=== PATIENT | female | born 1955 | race Caucasian/White ===

== ENCOUNTER → 2022-02-26 15:16 | Outpatient (BNVA) | payer OTHER, SELFPAY | PROVIDERS: PCP Nurse Practitioner Family; Visit Provider Hospitalist | DX: J44.9 Chronic obstructive pulmonary disease, unspecified (principal); J96.10 Chronic respiratory failure, unspecified whether with hypoxia or hypercapnia; F17.210 Nicotine dependence, cigarettes, uncomplicated; Z71.6 Tobacco abuse counseling | CPT/HCPCS: 94618; 99202; 99212 ==

== ENCOUNTER → 2022-03-12 12:45 | Outpatient (BNVA) | payer OTHER, SELFPAY | PROVIDERS: PCP Nurse Practitioner Family; Visit Provider Nurse Practitioner Family | DX: Z01.818 Encounter for other preprocedural examination (principal); K59.00 Constipation, unspecified; F17.210 Nicotine dependence, cigarettes, uncomplicated | CPT/HCPCS: 99202 ==

== ENCOUNTER 2022-04-02 14:49 | Outpatient (REF) | payer OTHER, SELFPAY ==
--- NOTE | 2022-04-02 17:40 | PFT_ITS ---
Forced vital capacity 84%, FEV1 51%, FEV1/FVC ratio is 47, HQF83-70 17%, and MVV 48%. Post bronchodilator therapy there is slight improvement in FVC and VTS15-64. Total lung capacity 104%. Residual volume 117%. Diffusion capacity 30. CONCLUSION: Severe obstructive airway disorder. There is slight improvement after bronchodilator therapy. Clinical correlation recommended. MD ROLAND Deng/MODL / [id number]
== END 2022-04-02 14:50 | disposition home or self-care (01) ==
LOC: HO.RESP 14:49
PROVIDERS: PCP Nurse Practitioner Family; Visit Provider Hospitalist
DX: J44.9 Chronic obstructive pulmonary disease, unspecified (principal); R06.00 Dyspnea, unspecified
CPT/HCPCS: 94060; 94727; 94729

== ENCOUNTER 2022-04-10 14:25 | Outpatient (REF) | payer OTHER, SELFPAY ==
--- NOTE | ~2022-04-10 | CT_ITS ---
EXAMINATION: CT CHEST SCREENING CLINICAL INFORMATION: Nicotine dependence. Current smoker. COMPARISON: None. TECHNIQUE: Multidetector volumetric CT imaging of the chest is performed without contrast using low dose technique. Additional 2D coronal and sagittal reformatted images and axial 3D maximum intensity projection (MIP) images are generated on the CT workstation. This CT examination was performed using dose optimization techniques as appropriate, variously including the following: *Automated exposure control *Adjustment of mA and/or kV according to patient size (this includes techniques or standardized protocols for targeted exams where dose is matched to indication/reason for exam; i.e. extremities or head) *Use of iterative reconstruction technique DLP: 49 mGy-cm FINDINGS: LUNGS: There is centrilobular emphysema most predominant in the upper lobes. There are focal atelectatic changes in the lingula. No acute consolidation seen. There are several pulmonary nodules visualized. A 4 mm nodule left lung apex image 101/6, 3 mL nodule adjacent to it at the same axial level, 3 mm nodule right upper lobe axial image 111/6, 4 mm nodule subpleural based left upper lobe axial image 145/6, 4 mm ground-glass density medially left upper lobe axial image 146/6, 4 mm nodule, 2 mm nodule and peripherally-based 2 mm nodules in right upper lobe axial image 210/6, semisolid 4 mm nodule peripherally-based left upper lobe axial image 218/6, 4 mm nodule right lower lobe superior segment axial image 252/6 and several additional nodules in the right upper lobe measuring 4 mm and 2 mm right upper lobe 275/6, 3 mm nodule right upper lobe adjacent to major fissure axial image 287/6. There are 2 mm nodules adjacent to each other in the right lower lobe axial image 277/6 and 286/6, 3 mm nodule right lower lobe posteriorly image 369/6. MEDIASTINUM: The thyroid lobes are symmetrical and normal. The central trachea and the bronchi are widely patent. Heart size and the great vessels are normal caliber. No abnormal size mediastinal or hilar lymph node seen. There are small shotty lymph nodes in the pretracheal space. There is no pericardial effusion. The heart size is normal. There is a small to moderate-sized hiatal hernia. PLEURA: There is no pleural effusion. There is minimal bilateral apical pleural thickening. No calcified pleural plaque seen. AXILLA: No lymphadenopathy. UPPER ABDOMEN: Visualized liver, spleen, pancreas and bilateral adrenal glands are unremarkable. OSSEOUS STRUCTURES: No lytic or sclerotic process seen. There is mild ventral spondylosis. CT/CT lung screening IMPRESSION: Diffuse centrilobular emphysema without acute process. There is bilateral apical pleural/parenchymal scarring. There are multiple bilateral pulmonary nodules largest nodule average is 4 mm. No abnormal mediastinal or axillary lymphadenopathy seen. ASSESSMENT: Lung-RADS category 2: Benign RECOMMENDATION: Low-dose annual CT chest.
== END 2022-04-10 14:26 | disposition home or self-care (01) ==
LOC: HO.CT 14:25
PROVIDERS: PCP Nurse Practitioner Family; Visit Provider Physician Assistant Medical
DX: Z12.2 Encounter for screening for malignant neoplasm of respiratory organs (principal); Z01.811 Encounter for preprocedural respiratory examination; F17.210 Nicotine dependence, cigarettes, uncomplicated; J44.9 Chronic obstructive pulmonary disease, unspecified; J96.10 Chronic respiratory failure, unspecified whether with hypoxia or hypercapnia
CPT/HCPCS: 71271; 94618; 99212; G0296

== ENCOUNTER 2022-08-27 12:00 | Outpatient (REF) | payer OTHER, SELFPAY ==
[2022-08-27 12:11] LABS: MANUAL DIFF FLAG NO
[2022-08-27 13:31] LABS: Basophils Absolute Auto 0.1 X10*3/uL (0.0-0.2); Basophils Percent Auto 1.5 % (0-2); Eosinophils Absolute Auto 0.4 X10*3/uL (0.0-0.4); Eosinophils Percent Auto 5.9 % (0-4); Hematocrit 45.5 % (37.0-47.0); Hemoglobin 14.8 g/dl (12.0-16.0); Imm Gran Abs Auto 0.03 X10*3/uL (0.00-0.03); Imm Gran Pct Auto 0.4 % (0.0-0.4); Lymphocytes Absolute Auto 2.7 X10*3/uL (1.2-4.9); Lymphocytes Percent Auto 36.1 % (20-40); Mean Corpuscular HGB Conc 32.5 g/dl (31.0-35.0); Mean Corpuscular Hemoglobin 29.7 pg (27.0-33.0); Mean Corpuscular Volume 91.4 fL (80.0-98.0); Mean Platelet Volume 9.1 fL (9.4-12.3); Monocytes Absolute Auto 0.4 X10*3/uL (0.1-1.2); Monocytes Percent Auto 5.8 % (2-11); Neutrophils Absolute Auto 3.7 x10*3/uL (2.0-8.3); Neutrophils Percent Auto 50.3 % (45-73); Platelet Count 351 X10*3/uL (160-400); Red Blood Count 4.98 X10*6/uL (4.20-5.50); Red Cell Distribution Width 14.6 % (11.0-16.0); White Blood Count 7.4 X10*3/uL (4.8-10.8)
[2022-08-27 14:17] LABS: Alanine Aminotransferase 12 U/L (0-31); Albumin Level 4.2 g/dL (3.5-5.0); Alkaline Phosphatase 85 U/L (39-117); Anion Gap 12 (12-20); Aspartate Amino Transferase 13 U/L (5-31); Bilirubin Total 0.6 mg/dL (0.0-1.0); Blood Urea Nitrogen 10 mg/dL (9-16); Calcium 9.2 mg/dL (8.4-10.2); Carbon Dioxide 28 mmol/L (22-29); Chloride 106 mmol/L (96-108); Cholesterol 248 mg/dL; Estimated Glomerular Filt Rate > 60; Glucose Fasting 81 mg/dL (60-99); HDL Cholesterol 39 mg/dL; LDL Cholesterol Calculated 163 mg/dl; Potassium 4.2 mmol/L (3.3-5.1); Sodium 142 mmol/L (135-145); TSH reflex Free T4 0.96 uIU/mL (0.32-4.0); Total Protein 7.2 g/dL (6.5-8.0); Triglycerides 232 mg/dL; Vitamin D 25-OH Total 16.1 ng/mL (>30)
[2022-08-27 14:33] LABS: Folate 6.7 ng/mL (> or = 4.0); Vitamin B12 629 pg/mL (200-900)
== END 2022-08-27 12:01 | disposition home or self-care (01) ==
LOC: HO.LAB 12:00
PROVIDERS: PCP Nurse Practitioner Family; Visit Provider Nurse Practitioner Family
DX: Z13.29 Encounter for screening for other suspected endocrine disorder (principal); Z13.220 Encounter for screening for lipoid disorders; J44.9 Chronic obstructive pulmonary disease, unspecified; F32.A Depression, unspecified
CPT/HCPCS: 36415; 80053; 80061; 82306; 82607; 82746; 84443; 85025

== ENCOUNTER → 2022-09-10 09:34 | Outpatient (BNVA) | payer OTHER, SELFPAY | PROVIDERS: PCP Nurse Practitioner Family; Visit Provider Hospitalist | DX: Z01.811 Encounter for preprocedural respiratory examination (principal); J44.9 Chronic obstructive pulmonary disease, unspecified; J96.10 Chronic respiratory failure, unspecified whether with hypoxia or hypercapnia; F17.210 Nicotine dependence, cigarettes, uncomplicated; Z86.16 Personal history of COVID-19; Z99.81 Dependence on supplemental oxygen | CPT/HCPCS: 99212 ==

== ENCOUNTER 2023-02-23 12:17 | Outpatient (REF) | payer OTHER, SELFPAY ==
[2023-02-23 13:27] LABS: Appearance Urine Cloudy; Color Urine Dark Yellow; Glucose Urine UA Negative (Negative); Leukocyte Esterase Urine Moderate (2+) (Negative); Nitrite Urine Positive (Negative); PH 7.5 (5.0-9.0); UMIC TRIGGER UACC YES; Urine Blood Trace (Negative); Urine Ketones Trace mg/dL (Negative); Urine Protein Negative (Neg-Trace)
[2023-02-23 13:33] LABS: Bacteria Urine 4+ (None Seen); Hyaline Casts Urine 0-2 /LPF (0-2); Squamous Epithelial Cell Urine 0-2 /HPF (0-2); UACC Culture Trigger YES
== END 2023-02-23 12:18 | disposition home or self-care (01) ==
LOC: HO.LAB 12:17
PROVIDERS: PCP Nurse Practitioner Family; Visit Provider Nurse Practitioner Family
DX: R39.9 Unspecified symptoms and signs involving the genitourinary system (principal)
CPT/HCPCS: 81001; 87086; 87088; 87186

== ENCOUNTER 2023-03-05 12:03 | Outpatient (REF) | payer OTHER, SELFPAY | END 2023-03-05 12:04 | disposition home or self-care (01) | LOC: HO.LAB 12:03 | PROVIDERS: Visit Provider Nurse Practitioner Family | DX: N39.0 Urinary tract infection, site not specified (principal) | CPT/HCPCS: 87086 ==

== ENCOUNTER 2023-08-24 13:16 | Outpatient (REF) | payer OTHER, SELFPAY ==
--- NOTE | ~2023-08-24 | CT_ITS ---
EXAMINATION: CT CHEST SCREENING CLINICAL INFORMATION: Lung cancer screening; current smoker with 50 pack-year smoking history. COMPARISON: CT lung screening dated 04/10/2020 TECHNIQUE: Multidetector volumetric CT imaging of the chest is performed without contrast using low dose technique. Additional 2D coronal and sagittal reformatted images and axial 3D maximum intensity projection (MIP) images are generated on the CT workstation. This CT examination was performed using dose optimization techniques as appropriate, variously including the following: *Automated exposure control *Adjustment of mA and/or kV according to patient size (this includes techniques or standardized protocols for targeted exams where dose is matched to indication/reason for exam; i.e. extremities or head) *Use of iterative reconstruction technique DLP: 51 mGy-cm FINDINGS: LUNGS: There are diffuse centrilobular predominant emphysematous changes. There is biapical pleural and parenchymal scarring. At the posterior right apex (5:86), a 5 mm noncalcified nodule is seen. There are a few further bilateral 1-2 mm noncalcified and calcified lung nodules. Overall, these nodules appear stable from 04/10/2020. No mass, infiltrate or groundglass opacity is seen. There is mild small airway thickening. The central airways appear patent. MEDIASTINUM: The thyroid is unremarkable. There is no thoracic aortic aneurysm. There are mild atherosclerotic calcifications of the great vessel origins and thoracic aorta. No mediastinal or hilar lymphadenopathy is seen. CORONARY ARTERY CALCIFICATION: None visualized on this study. PLEURA: There is no pleural effusion. No pleural mass or thickening. AXILLA: No lymphadenopathy. UPPER ABDOMEN: There is a moderately large hiatus hernia. The adrenal glands are unremarkable OSSEOUS STRUCTURES: There is multi-level thoracolumbar degenerative disc disease and spondylosis. There is a kyphoscoliosis. No acute or aggressive osseous finding is noted. CT/CT lung screening IMPRESSION: 1. A 5 mm noncalcified right lung nodule is again seen, there are further stable bilateral tiny benign, calcified and noncalcified bilateral lung nodules. 2. There are diffuse centrilobular predominant emphysematous changes. 3. No mass, infiltrate or groundglass opacity is seen. 4. There is no thoracic lymphadenopathy or pleural effusion. 5. No aggressive osseous lesion is seen. There is a kyphoscoliosis. 6. There is a moderately large hiatus hernia.. ASSESSMENT: Lung-RADS category 2: Benign RECOMMENDATION: Routine annual low-dose CT screening in 12 months.
== END 2023-08-24 13:17 | disposition home or self-care (01) ==
LOC: HO.CT 13:16
PROVIDERS: PCP Nurse Practitioner Family; Visit Provider Physician Assistant Medical
DX: Z12.2 Encounter for screening for malignant neoplasm of respiratory organs (principal); F17.210 Nicotine dependence, cigarettes, uncomplicated
CPT/HCPCS: 71271

== ENCOUNTER 2024-01-18 09:16 | Outpatient (AMB) | payer OTHER, SELFPAY ==
--- NOTE | 2024-01-18 09:27 | A.OFFPC_ITS ---
Vital Signs 01/18/24 09:30 Height 5 ft 3 in Weight 156 lb 4 oz BMI 27.7 BP 110/70 Blood Pressure Location Rt brachial Position Sitting Pulse 78 Pulse Source Pulse Oximeter Pulse Oximetry (%) 93 Oxygen Delivery Method Room Air Intake Visit Reasons: HLD Intake Note: Patient is here to follow up on HLD. Complaint of bilateral feet pain with numbness Planning Consultant Required: No Paint Spray Inspector: Not Required per policy Accompanied by: Self / Same As Patient Allergies duloxetine Allergy (Intermediate, Uncoded 01/18/24 10:43) mood swings fenofibrate Allergy (Intermediate, Uncoded 01/18/24 10:43) leg pain tizanidine Allergy (Intermediate, Uncoded 01/18/24 10:43) ineffective topiramate Allergy (Unknown, Uncoded 01/18/24 10:43) sob Medication List - Last Reconciled 01/18/24 by Jerome Busby MD bisacodyl (Dulcolax (bisacodyl)) 10 mg (2 x 5 mg) PO ONCE 1 day cholecalciferol (vitamin D3) 50 mcg PO DAILY citalopram 40 mg PO DAILY docusate sodium 100 mg PO BEDTIME umbpxfjhtmc-apkedwceq-psnbnhps 200-62.5-25 mcg (Trelegy Ellipta) 1 inh inhalation DAILY hydrocortisone 2.5% topical ipratropium-albuterol 0.5 mg-3 mg(2.5 mg base)/3 mL 3 mL inhalation BID 30 days nystatin 1 appl topical DAILY 2 weeks omeprazole 20 mg PO DAILY polyethylene glycol 3350 (Miralax) 238 grams PO ONCE pravastatin 10 mg PO BEDTIME Tobacco use date assessed: 01/18/24 Fall risk assessment: No Falls in past year Last assessed Fall Risk: 01/18/24 Dental Screening Dental Screen Date: 01/18/24 Did you have a dental visit in the last 12 months?: No Did you have a dental problem in the last 6 months where you did not have access to dental care?: No Was dental information given to patient?: No HPI HLD HPI Details 68-year-old female presents to the offic e to discuss her medical condition. I am assuming her care as her provider has left the practice. Patient smokes 1 pack a day. She has history of emphysema and is on oxygen replacement at night. Patient is reporting of burning sensation in her feet bilaterally. She is reporting discomfort in the hips and knees. She lives alone and drives occasionally. Does not cook. Able to function and do activities of daily living. [facility] Medical History Personal history of nicotine dependence Insomnia Chronic respiratory failure History of abnormal cervical Pap smear History of COVID-19 (~09/2021) Surgical History History of D&C History of bladder surgery History of hysterectomy History of cholecystectomy History of appendectomy Family History Sister Lung cancer Mother DM2 (diabetes mellitus, type 2) Father Alzheimer disease Other Mental health disorder Social History (Updated 01/18/24 @ 09:43 by Vivian Scherer Taran) Housing: Other (mobile home) Alcohol intake: never Patient Tobacco Use Status: Current everyday Tobacco user Tobacco use type: Cigarette Cigarette Packs Per Day: 1 Cigarettes Per Day: 15 Years Smoked: (onset 13yo, 1-2ppd x 53yrs, 60+PYH) e-Cigarette/Vaping Use: Never Used Second Hand Smoke Exposure: Yes service: No Current occupational status: retired Cognitive needs: No Hearing needs: No Vision needs: Yes (glasses) Questionnaire PHQ-9 Over the last 2 weeks, how often have you been bothered by any of the following problems? 1. Little interest or pleasure in doing things: not at all 2. Feeling down, depressed, or hopeless: not at all 3. Trouble falling or staying asleep, or sleeping too much: not at all 4. Feeling tired or having little energy: not at all 5. Poor appetite or overeating: not at all 6. Feeling bad about yourself - or that you are a failure or have let yourself or your family down: not at all 7. Trouble concentrating on things, such as reading the newspaper or watching television: not at all 8. Moving or speaking so slowly that other people could have noticed. Or the opposite - being so fidgety or restless that you have been moving around a lot more than usual: not at all 9. Thoughts that you would be better off or of hurting yourself in some way: not at all Total score: 0 Depression Screening Interpretation: Negative Depression Screening Done: Yes Source: Developed by Nae Esposito Kurt Kroenke and colleagues, with an educational bronwyn from [employer]. Thrive Questionnaire Date Thrive assessed: 01/18/24 I am a: Patient What is your living situation today?: I have a steady place to live Within the past 12 months, did the food you bought not last and you didn't have the money to get more?: Never true Within the past 12 months, did you worry whether your food would run out before you got money to buy more?: Never true Do you have trouble paying for medicines?: No Do you have trouble getting transportation to medical appointments?: No Do you have trouble paying your heating and electricity bill?: No Do you have trouble taking care of your child, family member or friend?: No Do you have trouble with day-to-day activities such as bathing, preparing meals, shopping, managing finances, etc.?: No Are you currently unemployed and looking for a job?: No Are you interested in more education?: No Currently or been in a relationship where the following occur: no concerns reported THRIVE Score: 0 AUDIT C Alcohol Use Questionnaire (AUDIT-C) 1. How often do you have a drink containing alcohol?: Never Total Score: 0 FROYLAN-7 AMB Questionnaire FROYLAN-7 Date FROYLAN - 7 assessed: 01/18/24 Feeling nervous, anxious, or on edge: 0 = Not at all Not being able to stop or control worryin = Not at all Worrying too much about different things: 0 = Not at all Trouble relaxin = Not at all Being so restless that it is hard to sit still: 0 = Not at all Becoming easily annoyed or irritable: 0 = Not at all Feeling afraid as if something awful might happen: 0 = Not at all Total FROYLAN-7 score (0-4 normal; 5-9 mild; 10-14 moderate; 15-21 severe): 0 Source: Developed by Nae Esposito Kurt Kroenke and colleagues, with an educational bronwyn from [employer]. Physical exam (Primary Care) Vital Signs: Last Vital Signs Pulse 78 01/18/24 09:30 BP 110/70 01/18/24 09:30 Pulse Ox 93 01/18/24 09:30 Oxygen Delivery Method Room Air 01/18/24 09:30 BMI result Body Mass Index 27.7 Tobacco/Smoking Status: Tobacco use Status Tobacco use date assessed 01/18/24 01/18/24 09:46 Patient Tobacco Use Status Current everyday Tobacco 01/18/24 09:46 Tobacco use type Cigarette 01/18/24 09:46 e-Cigarette/Vaping Use Never Used 01/18/24 09:46 PHQ-9: PHQ-9 Score PHQ-9: Total score 0 01/18/24 10:29 Depression Screening Interpretation: Negative Thrive Assessment: Date of Thrive Assessment Date Thrive assessed 01/18/24 01/18/24 09:46 Currently or been in a relationship where the following occur: no concerns reported Const General: cooperative and healthy appearing Nutritional Appearance: well nourished Orientation/consciousness: patient oriented x3 Limitations: no limitations HENMT Head: Yes normal to inspection Eyes General: appearance normal, both eyes and all related structures Neck Neck: Yes normal visual inspection Chest Chest palpation & inspection: normal palpation of entire chest wall Resp Effort & Inspection: normal respiratory effort Neuro General: patient oriented x3 Assessment and Plan Assessment & Plan (1) Peripheral neuropathy: Code(s): G62.9 - Polyneuropathy, unspecified Plan: Neurontin has been started. Blood work has been ordered. Medications: Refilled nystatin 1 appl topical DAILY 15 grams 0RF 2 weeks Coding Level of Care Code Est Pt Level 3 (98212) Diagnoses Peripheral neuropathy G62.9
[2024-01-18 09:30] VITALS: BP 110/70; PULSE 78; O2SAT 93; BMI 27.7
== END 2024-01-18 10:40 | disposition home or self-care (01) ==
PROVIDERS: PCP Nurse Practitioner Family; Visit Provider Internal Medicine
DX: G62.9 Polyneuropathy, unspecified (principal)
CPT/HCPCS: 99213

== ENCOUNTER → 2024-01-31 16:05 | Outpatient (BNVA) | payer OTHER, SELFPAY | PROVIDERS: PCP Nurse Practitioner Family; Visit Provider Nurse Practitioner Family | DX: Z12.11 Encounter for screening for malignant neoplasm of colon (principal); K21.9 Gastro-esophageal reflux disease without esophagitis; K59.01 Slow transit constipation | CPT/HCPCS: 99212 ==

== ENCOUNTER 2024-02-04 12:08 | Outpatient (REF) | payer OTHER, SELFPAY ==
--- NOTE | ~2024-02-04 | MM_ITS ---
EXAMINATION: MM SCREENING DIGITAL BREAST TOMOSYNTHESIS, BILATERAL CLINICAL INFORMATION: Screening. Asymptomatic. COMPARISON: Mammography: This study is compared with prior exams dating back to 2015. TECHNIQUE: Digital breast tomosynthesis is performed in both the craniocaudal and mediolateral oblique views along with computer-aided detection (CAD). Synthesized 2D images are generated from the tomosynthesis. FINDINGS: There are scattered areas of fibroglandular density (ACR BI-RADS breast composition Category b). There are no significant masses, abnormal calcifications, or other abnormalities. MM/MM tomosynthesis screening BI IMPRESSION: No mammographic evidence of malignancy. ASSESSMENT: BI-RADS BI-RADS 1 - Negative RECOMMENDATION: Routine annual mammography screening. 1 year F/U This examination should not preclude the clinical evaluation of a suspicious palpable abnormality. This patient's information was entered into a reminder system with a target due date for their next mammogram.
[2024-02-04 13:43] LABS: Hematocrit 41.5 % (37.0-47.0); Hemoglobin 14.2 g/dl (12.0-16.0); Mean Corpuscular HGB Conc 34.2 g/dl (31.0-35.0); Mean Corpuscular Hemoglobin 31.6 pg (27.0-33.0); Mean Corpuscular Volume 92.2 fL (80.0-98.0); Mean Platelet Volume 9.1 fL (9.4-12.3); Platelet Count 344 X10*3/uL (160-400); Red Cell Distribution Width 13.9 % (11.0-16.0); White Blood Count 8.6 X10*3/uL (4.8-10.8)
[2024-02-04 14:36] LABS: Alanine Aminotransferase 13 U/L (0-31); Albumin Level 3.9 g/dL (3.5-5.0); Alkaline Phosphatase 77 U/L (39-117); Anion Gap 14 (12-20); Aspartate Amino Transferase 22 U/L (5-31); Bilirubin Direct 0.1 mg/dL (0.0-0.5); Bilirubin Total 0.4 mg/dL (0.0-1.0); Blood Urea Nitrogen 11 mg/dL (9-16); Calcium 9.8 mg/dL (8.4-10.2); Carbon Dioxide 24 mmol/L (22-29); Chloride 103 mmol/L (96-108); Cholesterol 205 mg/dL (<200); Estimated Glomerular Filt Rate > 60; Glucose Random 87 mg/dL (60-115); HDL Cholesterol 43 mg/dL (>40); LDL Cholesterol Calculated 107 mg/dL (<100); Potassium 4.3 mmol/L (3.3-5.1); Sodium 137 mmol/L (135-145); Total Protein 7.6 g/dL (6.5-8.0); Triglycerides 279 mg/dL (<150)
[2024-02-04 14:51] LABS: Thyroid Stimulating Hormone 1.21 uIU/mL (0.32-4.0)
[2024-02-04 15:18] LABS: Appearance Urine Clear; Color Urine Yellow; Glucose Urine UA Negative (Negative); Leukocyte Esterase Urine Negative (Negative); Nitrite Urine Negative (Negative); Specific Gravity - Urine 1.015 (1.005-1.025); Urine Blood Negative (Negative); Urine Ketones Negative (Negative); Urine Protein Negative (Neg-Trace)
== END 2024-02-04 12:09 | disposition home or self-care (01) ==
LOC: HO.MAMMO 12:08
PROVIDERS: PCP Internal Medicine; Visit Provider Internal Medicine
DX: G62.9 Polyneuropathy, unspecified (principal); Z12.31 Encounter for screening mammogram for malignant neoplasm of breast
CPT/HCPCS: 36415; 77063; 77067; 80048; 80061; 80076; 81003; 84443; 85027

== ENCOUNTER → 2024-02-04 12:15 | Outpatient (BNV) | payer OTHER, SELFPAY | PROVIDERS: PCP Internal Medicine; Visit Provider Radiology Diagnostic Radiology | DX: Z12.31 Encounter for screening mammogram for malignant neoplasm of breast (principal) | CPT/HCPCS: 77063; 77067 ==

== ENCOUNTER 2024-02-16 13:42 | Outpatient (AMB) | payer OTHER, SELFPAY ==
--- NOTE | 2024-02-16 13:50 | A.OFFPC_ITS ---
Vital Signs 02/16/24 13:51 Height 5 ft 3 in Weight 157 lb 2 oz BMI 27.8 BP 130/62 Blood Pressure Location Lt brachial Position Sitting Pulse 97 Pulse Source Pulse Oximeter Pulse Oximetry (%) 92 Oxygen Delivery Method Room Air Intake Visit Reasons: 1mof\u Intake Note: Patient is here to follow up on Peripheral Neuropathy. Marketing Intelligence Manager Required: No Therapist Occupational: Not Required per policy Accompanied by: Self / Same As Patient Allergies duloxetine Allergy (Intermediate, Uncoded 02/16/24 15:11) mood swings fenofibrate Allergy (Intermediate, Uncoded 02/16/24 15:11) leg pain tizanidine Allergy (Intermediate, Uncoded 02/16/24 15:11) ineffective topiramate Allergy (Unknown, Uncoded 02/16/24 15:11) sob Medication List - Last Reconciled 02/16/24 by Jerome Busby MD bisacodyl (Dulcolax (bisacodyl)) 20 mg (4 x 5 mg) PO ONCE 1 day cholecalciferol (vitamin D3) 50 mcg PO DAILY citalopram 40 mg PO DAILY docusate sodium 200 mg (2 x 100 mg) PO BEDTIME curhuxsuzuo-stfkrjmio-wrlouvjk 200-62.5-25 mcg (Trelegy Ellipta) 1 inh inhalation DAILY gabapentin (Neurontin) 100 mg PO TID hydrocortisone 2.5% (Proctosol HC) 1 appl [place] BID-QID PRN ipratropium-albuterol 0.5 mg-3 mg(2.5 mg base)/3 mL 3 mL inhalation BID 30 days nystatin 1 appl topical DAILY 2 weeks omeprazole 20 mg PO DAILY Oxygen Home Use As directed polyethylene glycol 3350 (Miralax) 238 grams PO ONCE pravastatin 10 mg PO BEDTIME Tobacco use date assessed: 02/16/24 Fall risk assessment: No Falls in past year Last assessed Fall Risk: 02/16/24 Dental Screening Dental Screen Date: 01/18/24 HPI 1mof\u HPI Details 68-year-old female presents to the [facility] for a follow-up visit. In the last office visit, Neurontin was started at 100 mg thrice daily. Patient reports improvement in her tingling sensation and burning sensation in her feet. She is resting better at night. She reports feeling more energy during the daytime. Compliant with her other medications. [facility] Medical History (Updated 02/16/24 @ 15:14 by Jerome Busby MD) Peripheral neuropathy Personal history of nicotine dependence Insomnia Chronic respiratory failure History of abnormal cervical Pap smear History of COVID-19 (~09/2021) Surgical History History of D&C History of bladder surgery History of hysterectomy History of cholecystectomy History of appendectomy Family History Sister Lung cancer Mother DM2 (diabetes mellitus, type 2) Father Alzheimer disease Other Mental health disorder Social History Housing: Other (mobile home) Alcohol intake: never Patient Tobacco Use Status: Current everyday Tobacco user Tobacco use type: Cigarette Cigarette Packs Per Day: 1 Cigarettes Per Day: 15 Years Smoked: (onset 13yo, 1-2ppd x 53yrs, 60+PYH) e-Cigarette/Vaping Use: Never Used Second Hand Smoke Exposure: Yes service: No Current occupational status: retired Cognitive needs: No Hearing needs: No Vision needs: Yes (glasses) Questionnaire Thrive Questionnaire Date Thrive assessed: 01/18/24 Currently or been in a relationship where the following occur: no concerns reported THRIVE Score: 0 FROYLAN-7 AMB Questionnaire FROYLAN-7 Date FROYLAN - 7 assessed: 01/18/24 Source: Developed by Drs. Igor Fernandez, Nae Galdamez, Cole Eaton and colleagues, with an educational bronwyn from [employer]. Physical exam (Primary Care) Vital Signs: Last Vital Signs Pulse 97 02/16/24 13:51 BP 130/62 02/16/24 13:51 Pulse Ox 92 02/16/24 13:51 Oxygen Delivery Method Room Air 02/16/24 13:51 BMI result Body Mass Index 27.8 Tobacco/Smoking Status: Tobacco use Status Tobacco use date assessed 02/16/24 02/16/24 13:55 Patient Tobacco Use Status Current everyday Tobacco 02/16/24 13:55 Tobacco use type Cigarette 02/16/24 13:55 e-Cigarette/Vaping Use Never Used 02/16/24 13:55 Are you ready to quit: No Thrive Assessment: Date of Thrive Assessment Date Thrive assessed 01/18/24 02/16/24 13:55 Currently or been in a relationship where the following occur: no concerns reported Advance Care Planning discussion: Exists, not on file Date of discussion: 02/16/24 Who was present: Patient Forms completed: Health Care Proxy and MOLST Time spent: 1-15 minutes, not on file Actual minutes spent: 5 Const General: cooperative and healthy appearing Nutritional Appearance: well nourished Orientation/consciousness: patient oriented x3 Limitations: no limitations HENMT Head: Yes normal to inspection Eyes General: appearance normal, both eyes and all related structures Neck Neck: Yes normal visual inspection Chest Chest palpation & inspection: normal palpation of entire chest wall Resp Effort & Inspection: normal respiratory effort Neuro General: patient oriented x3 Assessment and Plan Assessment & Plan (1) Personal history of nicotine dependence: Comment: (current smoker - onset 13yo, 1-2ppd x 53yrs, 60+PYH, +fam hx lung ca) Code(s): Z87.891 - Personal history of nicotine dependence Plan: Counseling to quit smoking done. (2) COPD (chronic obstructive pulmonary disease): Code(s): J44.9 - Chronic obstructive pulmonary disease, unspecified Plan: Condition is stable. (3) Peripheral neuropathy: Code(s): G62.9 - Polyneuropathy, unspecified Plan: Neurontin dosage has been increased to 200 mg 3 times daily. Coding Level of Care Code Est Pt Level 4 (87253) Complex EM visit Add On G2211 Diagnoses Personal history of nicotine dependence Z87.891 COPD (chronic obstructive pulmonary disease) J44.9 Peripheral neuropathy G62.9 Additional Codes Vital Signs *Quality* - Advance Care Planning discussion: Exists, not on file ([id number]) Vital Signs *Quality* - Time spent: 1-15 minutes, not on file ([id number])
[2024-02-16 13:51] VITALS: BP 130/62; PULSE 97; O2SAT 92; BMI 27.8
== END 2024-02-16 14:49 | disposition home or self-care (01) ==
PROVIDERS: PCP Internal Medicine; Visit Provider Internal Medicine
DX: Z87.891 Personal history of nicotine dependence (principal); J44.9 Chronic obstructive pulmonary disease, unspecified; G62.9 Polyneuropathy, unspecified; Z00.00 Encounter for general adult medical examination without abnormal findings
CPT/HCPCS: 1123F; 1124F; 99214; G2211

== ENCOUNTER 2024-08-07 15:09 | Outpatient (AMB) | payer OTHER, MEDICAID, SELFPAY ==
[2024-08-07 15:35] VITALS: BP 122/80; PULSE 89; O2SAT 90; BMI 28.0
--- NOTE | 2024-08-07 15:35 | A.OFFPC_ITS ---
Vital Signs 08/07/24 15:35 Height 5 ft 3 in Weight 158 lb 0.6 oz BMI 28.0 BP 122/80 Blood Pressure Location Lt brachial Position Sitting Pulse 89 Pulse Source Pulse Oximeter Pulse Oximetry (%) 90 L Oxygen Delivery Method Room Air Intake Visit Reasons: 6m f/u-- Rsched from 07/27 Director Of Pulmonary Unit Required: No Allergies duloxetine Allergy (Intermediate, Uncoded 08/07/24 15:35) mood swings fenofibrate Allergy (Intermediate, Uncoded 08/07/24 15:35) leg pain tizanidine Allergy (Intermediate, Uncoded 08/07/24 15:35) ineffective topiramate Allergy (Unknown, Uncoded 08/07/24 15:35) sob Tobacco use date assessed: 02/16/24 Fall risk assessment: No Falls in past year Last assessed Fall Risk: 08/07/24 Dental Screening Dental Screen Date: 01/18/24 HPI 6m f/u-- Rsched from 07/27 HPI Details 68-year-old female [facility]. She reports that she has been very fatigued and short of breath with activities and walking short distances. Therefore since then she has been utilizing a walker. She is currently on gabapentin 200 mg t.i.d. for her neuropathy. She reports mild improvement in her neuropathy although states that she is still having back and foot pain. She reports it is worse at nighttime. In the past she has seen pain management and has had steroid injections to her back and her hips. She is not interested in any type of injections and would rather continue taking the Tylenol and gabapentin. Patient is concerned due to to moles appeared over the past few months to her lower legs. She would like these evaluated. Patient reports chronic incontinence which is unchanged. She reports she wears a brief daily. Patient reports a chronic cough with clear colored sputum this is unchanged. Patient is agreeable to influenza immunization today. Patient had a mammogram on 02/04/2024 which was normal. Patient refusing colonoscopy although agreeable to Cologuard. Patient had a CT lung cancer screening on 08/27/2023 and is aware of lung nodule. Patient reports she still smokes a proximally 30 cigarettes daily. She is interested in quitting smoking cigarettes. Patient denies any chest pain, wheezing, changes in sputum production, orthopnea, lower extremity edema or calf tenderness or any other symptoms complaints or concerns at this time. [facility] Medical History Nicotine dependence, cigarettes, uncomplicated Peripheral neuropathy Insomnia Chronic respiratory failure History of abnormal cervical Pap smear History of COVID-19 (~09/2021) Surgical History History of D&C History of bladder surgery History of hysterectomy History of cholecystectomy History of appendectomy Family History Sister Lung cancer Mother DM2 (diabetes mellitus, type 2) Father Alzheimer disease Other Mental health disorder Social History Housing: Other (mobile home) Alcohol intake: never Patient Tobacco Use Status: Current everyday Tobacco user Tobacco use type: Cigarette Cigarette Packs Per Day: 1 Cigarettes Per Day: 15 Years Smoked: (onset 13yo, 1-2ppd x 53yrs, 60+PYH) e-Cigarette/Vaping Use: Never Used Second Hand Smoke Exposure: Yes service: No Current occupational status: retired Cognitive needs: No Hearing needs: No Vision needs: Yes (glasses) Questionnaire Thrive Questionnaire Date Thrive assessed: 01/18/24 AUDIT C Alcohol Use Questionnaire (AUDIT-C) 1. How often do you have a drink containing alcohol?: Never 3. How often do you have six or more drinks on one occasion?: Never Total Score: 0 FROYLAN-7 AMB Questionnaire FROYLAN-7 Date FROYLAN - 7 assessed: 01/18/24 Source: Developed by Drs. Igor Fernandez, Nae Galdamez, Cole Eaton and colleagues, with an educational bronwyn from [employer]. Review of Systems Const All systems reviewed & are unremarkable except as noted in HPI and below Physical exam (Primary Care) Vital Signs: Last Vital Signs Pulse 89 08/07/24 15:35 BP 122/80 08/07/24 15:35 Pulse Ox 90 L 08/07/24 15:35 Oxygen Delivery Method Room Air 08/07/24 15:35 Appearance: Alert. Oriented X3. No acute distress. ? Head: Normal external exam. Normocephalic. Atraumatic.? Eyes: Conjunctiva and sclera normal. Eyelids normal. ? ENT: Moist mucous membranes. ? No trismus noted.? No drooling noted.? No muffled voice noted. Neck: Normal inspection. Neck supple. FROM. CVS: Normal heart rate and rhythm. Heart sound normal. No murmurs noted. Pulses normal throughout. Respiratory: No respiratory distress. Painless inspiration. Breath sounds normal. No wheezes/rales/rhonchi noted. Chest nontender. ? No accessory muscle usage noted or decreased air movement noted. Back: ?Full range of motion noted. Skin: Skin warm and dry.? Normal skin color.? Normal skin turgor. Patient noted to have a mole to right thigh and left thigh. The moles are not irregular. Moles are brown in color. No additional rashes/lesions/lacerations noted. Extremities: No lower extremity edema or calf tenderness noted. ? Extremities exhibit normal range of motion. Neuro: Oriented X 3.? Normal steady Gait. BMI result Body Mass Index 28.0 Tobacco/Smoking Status: Tobacco use Status Tobacco use date assessed 02/16/24 08/07/24 15:35 Patient Tobacco Use Status Current everyday Tobacco 08/07/24 15:35 Tobacco use type Cigarette 08/07/24 15:35 e-Cigarette/Vaping Use Never Used 08/07/24 15:35 Thrive Assessment: Date of Thrive Assessment Date Thrive assessed 01/18/24 08/07/24 15:35 Office Procedures Flu Questionnaire Does the patient have a severe egg allergy?: No Does the patient have severe life threatening allergies?: No Does the patient have a fever or illness today?: No Has the patient ever had Guillain-Hasty Syndrome?: No Has the patient ever had any past reaction to a flu shot?: No Immunizations Fluarix Triv [id number] (PF) 45 mcg (15 mcg x 3)/0.5 mL IM syringe Performing Provider: Jerome Busby MD [facility] [facility] [place] Administered by: TAYLOR Vences on 08/07/24 16:12 Dose Route Admin Location Dispensed Lot Number Expiration Date [facility] Medical Device Engineer 0.5 mL IM Left Deltoid 0.5 mL [id number] 03/19/25 [id number] [employer] VIS Given Date VIS Provided VIS Publication Date 08/07/24 Single Vaccine 21 Eligibility Eligibility Date Funding Source Not [facility] Eligible 08/07/24 Private Coding Level of Care Code Est Pt Level 4 (62267) Complex EM visit Add On G2211 Diagnoses COPD (chronic obstructive pulmonary disease) J44.9 Nicotine dependence, cigarettes, uncomplicated F17.210 Peripheral neuropathy G62.9 Urinary incontinence R32 Chronic back pain M54.9; G89.29 Benign mole D22.9 Assessment & Plan Assessment & Plan (1) COPD (chronic obstructive pulmonary disease): Code(s): J44.9 - Chronic obstructive pulmonary disease, unspecified Category: Medical Plan: Due to chronic COPD/emphysema patient having fatigue with activities and short walks. CT lung cancer screening perform on 08/27/2023; a stable 5 mm lung nodule noted. Referral to transporter radiology will be placed at this time. (2) Nicotine dependence, cigarettes, uncomplicated: Comment: (current smoker - onset 13yo, 1-2ppd x 55yrs, 60+PYH, +fam hx lung ca) Code(s): F17.210 - Nicotine dependence, cigarettes, uncomplicated Category: Medical Plan: Patient educated on COPD/emphysema and importance of smoking cessation. Patient will be referred to [facility] for smoking cessation. (3) Peripheral neuropathy: Code(s): G62.9 - Polyneuropathy, unspecified Category: Medical Plan: Patient to continue taking gabapentin 200 mg in the morning, 200 mg afternoon and will increased to 400 mg at night. (4) Urinary incontinence: Code(s): R32 - Unspecified urinary incontinence Category: Medical Plan: Patient to continue wearing briefs as needed. Condition is stable. (5) Chronic back pain: Code(s): M54.9 - Dorsalgia, unspecified; G89.29 - Other chronic pain Category: Medical Plan: Patient offered referral to pain management. Patient declined. Patient instructed to take extra-strength Tylenol and her prescribed gabapentin. (6) Benign mole: Code(s): D22.9 - Melanocytic nevi, unspecified Category: Medical Plan: Benign appearing moles. Will continue to monitor. If moles change, grow large or appear irregular patient will be referred at that time. Although no referral indicated at this time for Dermatology. Plan Patient will receive influenza vaccine today. Cologuard referral will be placed. Patient educated on Cologuard test and if positive will need a colonoscopy. Patient understands and is agreeable to this. Patient to return in 3-6 months for follow-up. Orders: Orders Influenza [id number] Immunization 08/07/24 Z23 - Encounter for immunization Referrals Cologuard Test Z12.11 - Encounter for screening for malignant neoplasm of colon
== END 2024-08-07 16:17 | disposition home or self-care (01) ==
PROVIDERS: PCP Internal Medicine; Visit Provider Internal Medicine
DX: J44.9 Chronic obstructive pulmonary disease, unspecified (principal); F17.210 Nicotine dependence, cigarettes, uncomplicated; G62.9 Polyneuropathy, unspecified; R32 Unspecified urinary incontinence; M54.9 Dorsalgia, unspecified; G89.29 Other chronic pain; D22.9 Melanocytic nevi, unspecified

== ENCOUNTER → 2024-08-07 15:09 | Outpatient (BNVA) | payer OTHER, SELFPAY | PROVIDERS: PCP Internal Medicine; Visit Provider Internal Medicine | DX: Z23 Encounter for immunization (principal); J44.9 Chronic obstructive pulmonary disease, unspecified; G62.9 Polyneuropathy, unspecified; R32 Unspecified urinary incontinence; M54.9 Dorsalgia, unspecified; G89.29 Other chronic pain; D22.9 Melanocytic nevi, unspecified; F17.210 Nicotine dependence, cigarettes, uncomplicated; Z71.6 Tobacco abuse counseling | CPT/HCPCS: 90471; 90656; 99212 ==

== ENCOUNTER 2024-09-28 14:23 | Outpatient (AMB) | payer OTHER, MEDICAID, SELFPAY ==
--- NOTE | 2024-09-28 14:39 | A.OFFPC_ITS ---
Vital Signs 09/28/24 14:41 Height 5 ft 3 in Weight 157 lb 6 oz BMI 27.9 BP 110/68 Blood Pressure Location Lt brachial Position Sitting Pulse 83 Pulse Source Pulse Oximeter Temp 97 F Temp Source Temporal Artery Scan Pulse Oximetry (%) 94 Oxygen Delivery Method Room Air Intake Visit Reasons: rt side back pain Intake Note: Patient is here to follow up on right side lower back pain. 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 per policy Accompanied by: Self / Same As Patient Allergies duloxetine Allergy (Intermediate, Uncoded 09/28/24 15:02) mood swings fenofibrate Allergy (Intermediate, Uncoded 09/28/24 15:02) leg pain tizanidine Allergy (Intermediate, Uncoded 09/28/24 15:02) ineffective topiramate Allergy (Unknown, Uncoded 09/28/24 15:02) sob Medication List - Last Reconciled 09/28/24 by Mignon Mittal PA-C acetaminophen ER (Tylenol Arthritis Pain) 1,300 mg (2 x 650 mg) PO Q12H albuterol sulfate 90 mcg/actuation 1 inh inhalation QID PRN bisacodyl (Dulcolax (bisacodyl)) 20 mg (4 x 5 mg) PO ONCE 1 day bisacodyl (Dulcolax (bisacodyl)) 20 mg (4 x 5 mg) PO ONCE 1 day cholecalciferol (vitamin D3) 50 mcg PO DAILY citalopram 40 mg PO DAILY cyclobenzaprine 10 mg PO TID PRN docusate sodium 200 mg (2 x 100 mg) PO BEDTIME fsternkbcbj-tieiojhxe-hmhushba 200-62.5-25 mcg (Trelegy Ellipta) 1 inh inhalation DAILY gabapentin 200 mg (2 x 100 mg) PO BID 90 days gabapentin 400 mg PO BEDTIME 90 days hydrocortisone 2.5% (Proctosol HC) 1 appl ND BID-QID PRN ipratropium-albuterol 0.5 mg-3 mg(2.5 mg base)/3 mL 3 mL inhalation BID 30 days nystatin 1 appl topical DAILY 2 weeks omeprazole 20 mg PO DAILY Oxygen Home Use As directed polyethylene glycol 3350 (Miralax) 238 grams PO ONCE 1 day polyethylene glycol 3350 (Miralax) 238 grams PO ONCE pravastatin 10 mg PO BEDTIME prednisone 40 mg (2 x 20 mg) PO DAILY 5 days Tobacco use date assessed: 09/28/24 Fall risk assessment: No Falls in past year Last assessed Fall Risk: 09/28/24 Dental Screening Dental Screen Date: 09/28/24 Did you have a dental visit in the last 12 months?: No Did you have a dental problem in the last 6 months where you did not have access to dental care?: No Was dental information given to patient?: No PFSH Medical History Nicotine dependence, cigarettes, uncomplicated Peripheral neuropathy Insomnia Chronic respiratory failure History of abnormal cervical Pap smear History of COVID-19 (~09/2021) Surgical History History of D&C History of bladder surgery History of hysterectomy History of cholecystectomy History of appendectomy Family History Sister Lung cancer Mother DM2 (diabetes mellitus, type 2) Father Alzheimer disease Other Mental health disorder Social History Housing: Other (mobile home) Alcohol intake: never Patient Tobacco Use Status: Current everyday Tobacco user Tobacco use type: Cigarette Cigarette Packs Per Day: 1 Cigarettes Per Day: 20 Years Smoked: (onset 13yo, 1-2ppd x 53yrs, 60+PYH) e-Cigarette/Vaping Use: Never Used Second Hand Smoke Exposure: Yes service: No Current occupational status: retired Cognitive needs: No Hearing needs: No Vision needs: Yes (glasses) Questionnaire PHQ-9 Over the last 2 weeks, how often have you been bothered by any of the following problems? 1. Little interest or pleasure in doing things: not at all 2. Feeling down, depressed, or hopeless: not at all 3. Trouble falling or staying asleep, or sleeping too much: not at all 4. Feeling tired or having little energy: not at all 5. Poor appetite or overeating: not at all 6. Feeling bad about yourself - or that you are a failure or have let yourself or your family down: not at all 7. Trouble concentrating on things, such as reading the newspaper or watching television: not at all 8. Moving or speaking so slowly that other people could have noticed. Or the opposite - being so fidgety or restless that you have been moving around a lot more than usual: not at all 9. Thoughts that you would be better off or of hurting yourself in some way: not at all Total score: 0 Depression Screening Interpretation: Negative Depression Screening Done: Yes Source: Developed by Drs. Igor Fernandez, Nae Galdamez, Cole Eaton and colleagues, with an educational bronwyn from [employer]. Thrive Questionnaire Date Thrive assessed: 09/28/24 I am a: Patient What is your living situation today?: I have a steady place to live Within the past 12 months, did the food you bought not last and you didn't have the money to get more?: Never true Within the past 12 months, did you worry whether your food would run out before you got money to buy more?: Never true Do you have trouble paying for medicines?: No Do you have trouble getting transportation to medical appointments?: No Do you have trouble paying your heating and electricity bill?: No Do you have trouble taking care of your child, family member or friend?: No Do you have trouble with day-to-day activities such as bathing, preparing meals, shopping, managing finances, etc.?: No Are you currently unemployed and looking for a job?: No Are you interested in more education?: No Please select the resources that you would like help with: None Currently or been in a relationship where the following occur: No concerns reported THRIVE Score: 0 AUDIT C Alcohol Use Questionnaire (AUDIT-C) 1. How often do you have a drink containing alcohol?: Never 3. How often do you have six or more drinks on one occasion?: Never Total Score: 0 FROYLAN-7 AMB Questionnaire FROYLAN-7 Date FROYLAN - 7 assessed: 09/28/24 Feeling nervous, anxious, or on edge: 0 = Not at all Not being able to stop or control worryin = Not at all Worrying too much about different things: 0 = Not at all Trouble relaxin = Not at all Being so restless that it is hard to sit still: 0 = Not at all Becoming easily annoyed or irritable: 0 = Not at all Feeling afraid as if something awful might happen: 0 = Not at all Total FROYLAN-7 score (0-4 normal; 5-9 mild; 10-14 moderate; 15-21 severe): 0 Source: Developed by Drs. Igor Fernandez, Nae Galdamez, Cole Eaton and colleagues, with an educational bronwyn from [employer]. Physical exam (Primary Care) Vital Signs: Last Vital Signs Temp 97 F 09/28/24 14:41 Pulse 83 09/28/24 14:41 BP 110/68 09/28/24 14:41 Pulse Ox 94 09/28/24 14:41 Oxygen Delivery Method Room Air 09/28/24 14:41 Care Plan Goal for BP management: BP 110/86 AT GOAL/WNL BMI result Body Mass Index 27.9 BMI Assessment/Plan discussion: High BMI High, discussed plan: lifestyle, weight reduction, dietary and physical activity Tobacco/Smoking Status: Tobacco use Status Tobacco use date assessed 09/28/24 09/28/24 14:47 Patient Tobacco Use Status Current everyday Tobacco 09/28/24 14:47 Tobacco use type Cigarette 09/28/24 14:47 e-Cigarette/Vaping Use Never Used 09/28/24 14:47 PHQ-9: PHQ-9 Score PHQ-9: Total score 0 09/28/24 14:47 Depression Screening Interpretation: Negative Thrive Assessment: Date of Thrive Assessment Date Thrive assessed 09/28/24 09/28/24 14:47 Currently or been in a relationship where the following occur: No concerns reported Coding Level of Care Code Est Pt Level 4 (23615) Complex EM visit Add On G2211 Diagnoses Chronic back pain M54.9; G89.29 Benign mole D22.9 Nicotine dependence, cigarettes, uncomplicated F17.210 Peripheral neuropathy G62.9 Low vitamin D level R79.89 Hyperlipidemia E78.5 Gastroesophageal reflux disease, unspecified whether esophagitis present K21.9 Esophagitis presence: esophagitis presence not specified Depression F32.A Insomnia G47.00 Anxiety F41.9 COPD (chronic obstructive pulmonary disease) J44.9 Chronic respiratory failure J96.10 On home O2 Z99.81 Overweight (BMI 25.0-29.9) E66.3 Assessment & Plan Assessment & Plan (1) Chronic back pain: Code(s): M54.9 - Dorsalgia, unspecified; G89.29 - Other chronic pain Category: Medical Plan: Will order x-ray of lumbar spine and x-ray of right hip. Patient will be prescribed extra-strength Tylenol, Flexeril and a course of steroids for 1 week. Gabapentin prescription sent an updated to follow last recommendations. Condition is chronic and stable. Will continue to monitor. (2) Benign mole: Code(s): D22.9 - Melanocytic nevi, unspecified Category: Medical Plan: Condition is chronic and stable will continue to monitor. (3) Nicotine dependence, cigarettes, uncomplicated: Comment: (current smoker - onset 13yo, 1-2ppd x 55yrs, 60+PYH, +fam hx lung ca) Code(s): F17.210 - Nicotine dependence, cigarettes, uncomplicated Category: Medical Plan: Condition is chronic and stable. Will continue to monitor (4) Peripheral neuropathy: Code(s): G62.9 - Polyneuropathy, unspecified Category: Medical Plan: Condition is chronic and stable will continue to monitor. (5) Low vitamin D level: Code(s): R79.89 - Other specified abnormal findings of blood chemistry Category: Medical Plan: Condition is chronic and stable will continue to monitor labs. (6) Hyperlipidemia: Code(s): E78.5 - Hyperlipidemia, unspecified Category: Medical Plan: Patient currently on pravastatin. Taking as prescribed. Condition is chronic and stable. Will continue to monitor. (7) GERD (gastroesophageal reflux disease): Code(s): K21.9 - Gastro-esophageal reflux disease without esophagitis Category: Medical Qualifiers: Esophagitis presence: esophagitis presence not specified Qualified Code(s): K21.9 - Gastro-esophageal reflux disease without esophagitis Plan: Patient currently on omeprazole daily 20 mg taking as prescribed. Condition is chronic and stable. Will continue to monitor. (8) Depression: Code(s): F32.A - Depression, unspecified Category: Medical Plan: Condition is chronic and stable patient is currently on citalopram 40 mg daily taking as prescribed. Will continue to monitor. (9) Insomnia: Code(s): G47.00 - Insomnia, unspecified Category: Medical Plan: Condition is chronic and stable patient is currently on gabapentin taking as prescribed. Will continue to monitor. (10) Anxiety: Code(s): F41.9 - Anxiety disorder, unspecified Category: Medical Plan: Condition is chronic and stable patient is currently on citalopram 40 mg daily taking as prescribed. Will continue to monitor. (11) COPD (chronic obstructive pulmonary disease): Code(s): J44.9 - Chronic obstructive pulmonary disease, unspecified Category: Medical Plan: Condition is chronic and stable patient has home oxygen. Will continue to monitor (12) Chronic respiratory failure: Code(s): J96.10 - Chronic respiratory failure, unspecified whether with hypoxia or hypercapnia Category: Medical Plan: Condition is chronic and stable patient has home oxygen. Will continue to monitor (13) On home O2: Comment: (on O2 from [employer]) Code(s): Z99.81 - Dependence on supplemental oxygen Category: Medical Plan: Condition is chronic and stable patient has home oxygen. Will continue to monitor (14) Overweight (BMI 25.0-29.9): Code(s): E66.3 - Overweight Category: Medical Plan: Condition is chronic and stable. Will continue to monitor. Plan Plan - Order x-ray of lumbar spine and right hip to assess structural causes. - Adjust gabapentin prescription to 200 mg BID and 400 mg nightly for neuropathic pain management. - Recommended use of extra-strength Tylenol. - Discuss alternative management options with orthopedics if necessary. - Consider muscle relaxants with caution regarding driving and alcohol use. Orders: Orders XR hip RT 1V w/wo pel Today G89.29 - Other chronic pain, M54.9 - Dorsalgia, unspecified XR lumbar spine 4V min Today G89.29 - Other chronic pain, M54.9 - Dorsalgia, unspecified Medications: New gabapentin 100 mg PO BID 90 days 180 caps 1RF acetaminophen ER (Tylenol Arthritis Pain) 1,300 mg (2 x 650 mg) PO Q12H 30 tabs 1RF gabapentin 200 mg (2 x 100 mg) PO BID 90 days 360 caps 1RF prednisone 40 mg (2 x 20 mg) PO DAILY 5 days 10 tabs 0RF gabapentin 400 mg PO BEDTIME 90 days 90 caps 1RF cyclobenzaprine 10 mg PO TID PRN 30 tabs 1RF muscle spasm Discontinued gabapentin Discontinued Reason: Duplicate 200 mg (2 x 100 mg) PO TID 180 caps 1RF Patient Instructions: Patient Instructions - Undergo lumbar spine and right hip x-rays as ordered. - Take gabapentin as prescribed: 200 mg twice daily and 400 mg at night. - Use extra-strength Tylenol for pain as directed. - Avoid alcohol and driving when taking muscle relaxants. - Return for follow-up consultation after x-ray results. Scribe Plan - Not visible on output: History of Present Illness The patient is a 68-year-old female presenting with right-sided back pain. She reports that the pain began approximately two weeks ago, specifically on September 11, 2024, when she woke up with it. Initially, the patient visited an urgent care facility following which she was referred to the emergency department. At the ER, she underwent a CT scan which was negative for kidney stones and urinary tract infections, despite having had hematuria in the past. The current back pain is located on the right side and seems to radiate and move in nature. The patient denies any recent trauma, falls, heavy lifting, or invo lvement in a car accident. Classic symptoms associated with urinary tract infections like burning sensation while urinating or hematuria have resolved. Pain does not improve significantly with rest. She recalls a history of back pain due to crushed discs but states this pain is different. Social History - No current employment and not interested in returning to work. 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 - No current alcohol consumption. - Does not drive. - Declined cortisone shots and physical therapy in the past. - No known recreational drug use. Review of Systems - Musculoskeletal: Reports right-sided back pain. - Genitourinary: Denies current dysuria, hematuria, or abdominal pain. - Gastrointestinal: Denies nausea or vomiting. Physical Exam Appearance: Alert. Oriented X3. No acute distress. Head: Normal external exam. Normocephalic. Atraumatic. Eyes: Pupils are equal, round, and reactive to light. Extraocular movements intact. Conjunctiva and sclera normal. Eyelids normal. Ears: External auditory canal normal. Tympanic membranes normal. Throat: Pharynx normal. Uvula midline. Moist mucous membranes. Neck: Normal inspection. Neck supple. Full range of motion. No adenopathy. Thyroid Normal. No meningeal signs. No neck mass noted. Cardiovascular: Normal heart rate and rhythm. Heart sound normal. No murmurs noted. Pulses normal throughout. Respiratory: No respiratory distress. Painless inspiration. Breath sounds normal. No wheezes/rales/rhonchi noted. Chest nontender. No accessory muscle usage noted or decreased air movement noted. Abdomen: Soft and nontender. Bowel sounds normal in all 4 quadrants. No distention noted. No organomegaly noted. No visible injury noted. Back: Right-sided back pain noted. No costovertebral angle tenderness. Full range of motion noted. Skin: Skin warm and dry. Normal skin color. Normal skin turgor. No rashes/lesions/lacerations noted. Extremities: No lower extremity edema. Extremities exhibit normal range of motion. Extremities nontender. Neuro: Oriented X 3. No motor deficit. No sensory deficit. Reflexes normal. Results - Labs: Previous urinalysis noted blood in the urine, no current labs mentioned. - Tests and Diagnostics: CT scan of abdomen negative for kidney stones or UTI. Plan - Order x-ray of lumbar spine and right hip to assess structural causes. - Adjust gabapentin prescription to 200 mg BID and 400 mg nightly for neuropathic pain management. - Recommended use of extra-strength Tylenol. - Discuss alternative management options with orthopedics if necessary. - Consider muscle relaxants with caution regarding driving and alcohol use. Patient was informed and verbally consented to the use of an ambient scribe for clinic note documentation during this visit. Discussion Notes I discussed the likelihood of sciatica as the cause of the patient's right-sided back pain due to her previous history of sciatica and crushed discs. I highlighted the importance of obtaining an x-ray to rule out structural abnormalities. We reviewed pain management strategies, including a potential increase in gabapentin dosage and the introduction of a muscle relaxant, advising against alcohol or operating vehicles due to potential sedative effects. We agreed on avoiding cortisone shots and evaluated the limited efficacy of previous physical therapy sessions. I informed her that follow-up would depend on the results of the x-ray and subsequent symptom progression. Patient Instructions - Undergo lumbar spine and right hip x-rays as ordered. - Take gabapentin as prescribed: 200 mg twice daily and 400 mg at night. - Use extra-strength Tylenol for pain as directed. - Avoid alcohol and driving when taking muscle relaxants. - Return for follow-up consultation after x-ray results.
[2024-09-28 14:41] VITALS: BP 110/68; PULSE 83; TEMP 36.1; O2SAT 94; BMI 27.9
== END 2024-09-28 15:04 | disposition home or self-care (01) ==
PROVIDERS: PCP Internal Medicine; Visit Provider Internal Medicine
DX: M54.9 Dorsalgia, unspecified (principal); G89.29 Other chronic pain; J44.9 Chronic obstructive pulmonary disease, unspecified; J96.10 Chronic respiratory failure, unspecified whether with hypoxia or hypercapnia; D22.9 Melanocytic nevi, unspecified; F17.210 Nicotine dependence, cigarettes, uncomplicated; G62.9 Polyneuropathy, unspecified; R79.89 Other specified abnormal findings of blood chemistry; E78.5 Hyperlipidemia, unspecified; K21.9 Gastro-esophageal reflux disease without esophagitis; F32.A Depression, unspecified; G47.00 Insomnia, unspecified

== ENCOUNTER 2024-09-28 14:23 | Outpatient (REF) | payer OTHER, MEDICAID, SELFPAY ==
--- NOTE | ~2024-09-28 | XR_ITS ---
EXAMINATION: XR HIP, RIGHT CLINICAL INFORMATION: M54.9 - Dorsalgia, unspecified; right-sided hip pain. COMPARISON: None available. TECHNIQUE: AP pelvis, and 2 views of the right hip. FINDINGS: No fracture. Alignment is anatomic. Ilioischial and iliopectineal lines are intact. No suspicious bone lesions. There are mild degenerative changes in both hip joints. Femoral heads are normal in contour. Sacrum and SI joints appear normal. Surgical clip projects over the left sacral wing. No soft tissue abnormalities seen. XR/XR hip RT min 2V w/wo pel IMPRESSION: No acute findings right hip. Mild degenerative arthritis. Electronically signed by: Hamzah Moore MD 09/28/2024 04:13 PM [facility]
--- NOTE | ~2024-09-28 | XR_ITS ---
CLINICAL HISTORY: M54.9 - Dorsalgia, unspecified Radiographs of the lumbar spine, 6 views Comparison: None Findings: There is normal alignment. No fracture. Decreased bone mineralization. The vertebral body heights are preserved. There is mild multilevel intervertebral disc space narrowing with mild endplate osteophytosis. Mild lower lumbar facet hypertrophy. Vascular calcifications. Impression: No acute findings. Mild degenerative change. This document has been electronically signed by: Yuly Steve MD on 09/28/2024 16:42:02
== END 2024-09-28 14:24 | disposition home or self-care (01) ==
LOC: HO.XRAY 14:23
PROVIDERS: PCP Internal Medicine; Visit Provider Internal Medicine
DX: M54.9 Dorsalgia, unspecified (principal); G89.29 Other chronic pain
CPT/HCPCS: 72110; 73502

== ENCOUNTER → 2024-09-28 15:14 | Outpatient (BNV) | payer OTHER, MEDICAID, SELFPAY | PROVIDERS: PCP Internal Medicine; Visit Provider Radiology Diagnostic Radiology | DX: M54.9 Dorsalgia, unspecified (principal); M25.551 Pain in right hip | CPT/HCPCS: 73502 ==

== ENCOUNTER 2024-11-30 13:28 | Outpatient (REF) | payer OTHER, MEDICAID, SELFPAY ==
--- NOTE | ~2024-11-30 | XR_ITS ---
EXAMINATION: XR LUMBAR SPINE 2-3 VIEWS HISTORY: M54.6 - Pain in thoracic spine COMPARISON: Comparison is made with the prior examination dated 09/28/2024. FINDINGS: AP, lateral, and coned down views of the lumbar spine are submitted. Osseous mineralization is normal. Five nonrib-bearing lumbar vertebral bodies are identified, maintaining normal height and alignment without evidence of fracture or spondylolisthesis. There is mild degenerative disc disease with disc space narrowing and osteophyte formation. There is osteoarthritis of the lower lumbar facet joints. There is a 6 mm calcification overlying the right transverse process of L3 which may be related to the urinary system. There is a metallic clip in the pelvis. XR/XR lumbar spine 2-3V IMPRESSION: Degenerative changes of the lumbar spine as described. Electronically signed by: Igor Charles MD 12/01/2024 08:05 AM EDT
[2024-11-30 14:56] LABS: Appearance Urine Clear; Color Urine Yellow; Glucose Urine UA Negative (Negative); Leukocyte Esterase Urine Trace (Negative); Nitrite Urine Positive (Negative); Specific Gravity - Urine 1.015 (1.005-1.025); UMIC TRIGGER UA YES; Urine Blood Trace (Negative); Urine Ketones Negative (Negative); Urine Protein Negative (Neg-Trace)
[2024-11-30 14:59] LABS: Bacteria Urine 1+ (None Seen); Hyaline Casts Urine 0-2 /LPF (0-2); Squamous Epithelial Cell Urine 0-2 /HPF (0-2); WBC Urine 0-5 /HPF (0-5)
[2024-11-30 15:03] LABS: Hematocrit 43.5 % (37.0-47.0); Hemoglobin 14.8 g/dl (12.0-16.0); Mean Corpuscular Hemoglobin 30.3 pg (27.0-33.0); Mean Corpuscular Volume 89.1 fL (80.0-98.0); Mean Platelet Volume 8.7 fL (9.4-12.3); Platelet Count 389 X10*3/uL (160-400); Red Blood Count 4.88 X10*6/uL (4.20-5.50); Red Cell Distribution Width 15.7 % (11.0-16.0); White Blood Count 10.9 X10*3/uL (4.8-10.8)
[2024-11-30 15:46] LABS: Erythrocyte Sedimentation Rate 15 MM/HR (0-20)
[2024-11-30 17:05] LABS: Alanine Aminotransferase 13 U/L (0-31); Albumin Level 4.1 g/dL (3.5-5.0); Alkaline Phosphatase 85 U/L (39-117); Anion Gap 15 (12-20); Aspartate Amino Transferase 21 U/L (5-31); Bilirubin Direct 0.2 mg/dL (0.0-0.5); Bilirubin Total 0.5 mg/dL (0.0-1.0); Blood Urea Nitrogen 9 mg/dL (9-16); Calcium 9.4 mg/dL (8.4-10.2); Carbon Dioxide 23 mmol/L (22-29); Chloride 105 mmol/L (96-108); Cholesterol 176 mg/dL (<200); Estimated Glomerular Filt Rate > 60; Glucose Random 83 mg/dL (60-115); HDL Cholesterol 45 mg/dL (>40); LDL Cholesterol Calculated 78 mg/dL (<100); Potassium 4.3 mmol/L (3.3-5.1); Sodium 139 mmol/L (135-145); Triglycerides 266 mg/dL (<150)
[2024-11-30 17:21] LABS: Thyroid Stimulating Hormone 1.41 uIU/mL (0.32-4.0)
--- OUTSIDE RECORDS SUMMARY | 2024-11-30 17:57 | XMS_ITS | Clinical Summary ---
Author Organization [facility] Address [address] [place] [address] Phone Care Team Providers Care Supervisor Veneer Name Role Phone Unknown, Unknown Primary Care [...] Type Department Care Team Description 11/12/2024 Refill [facility] Internal Medicine [address] [place] [address] Jessica Welsh, TABLE TOP TILE SETTER Medication Refill from Last 3 Months Immunizations [...] (06/26/2021 7:10 AM EDT) Blood Kamryn Davis [facility] LAB BLOOD SENTHIL [facility]KE[facility] EXTERNAL NON-INTERFACED REF LAB * (ABNORMAL) Lipid panel (11/29/2020 8:02 AM EST) HDL 41 mg/dL [facility] Comment: ? Interpretation <40 mg/dL: Low HDL cholesterol (major risk factor for CHD) Greater than or equal to 60 mg/dL: High HDL cholesterol ( negative risk factor for CHD) HDL - cholesterol is affected by a number of factors, e.g. smoking, excerise, hormones, sex and age. CHOLESTEROL 226 0 - 240 mg/dL [facility] TRIGLYCERIDES 247(H) 30 - 160 mg/dL [facility] LDL 136(H) 50 - 129 mg/dL [facility] Comment: LDL levels in terms of risk for coronary heart disease: <100 mg/dL: Optimal 100-129 mg/dL: Near or above optimal 130-159 mg/dL: Borderline high 160-189 mg/dL: High >190 mg/dL: Very High CARDIAC RISK RATIO 5.5(H) 3.3 - 4.4 C [facility] Blood 11/29/2020 8:02 AM EST 11/29/2020 8:07 AM EST Kamryn Davis [facility] BLOOD SENTHIL MCKEON Performing Organization Address City/[facility] Co de Phone Number [address] [address] * Mammogram Outside (No Interpretation) (08/30/2015 12:00 AM EST) Narrative SYSTEMGENERATED, DOCUMENTATION - 12/24/2020 1:20 PM EDT This study is for PACS storage only and not for interpretation. Provider Not In System PhD IMG OUTSIDE I [place] W/OUT INTERPRETATION from Last 3 Months or Most Recently Relevant to Health Maintenance Ulises, Amy Personal/Family Self [address] [place] [address] Ulises, Amy Personal/Family Self [address] [place] [address] [place], Amy Personal/Family Self [address] [place] [address] [place], Amy Personal/Family Self [address] [place] [address] [place], Amy Personal/Family Self [address] [place] [address] [place], Amy Personal/Family Self [address] [place] [address] [place], Amy Personal/Family Self [address] [place] [address] [place], Amy Personal/Family Self [address] [place] [address] Care Teams Supervisor Veneer Relationship Specialty Start Date End Date Unknown, Unknown, PCP - General 11/23/23 Additional Source Comments The information contained in this document represents components of the legal health record. It is not the complete legal health record.[facility]
--- OUTSIDE RECORDS SUMMARY | 2024-11-30 17:57 | XMS_ITS | Encounter Summary ---
Author Organization [facility] Address [address] [facility] [address] [place] [address] Phone Care Team Providers Care Rotary Bar Operator Name Role Phone Unknown, Unknown Primary Care Provider Vashti freeman Reason for Visit * Reason Comments Medication Refill Encounter Details Date Type Department Care Team (Late st Contact Info) Description 11/12/2024 Refill [facility] Medical [facility] Internal Medicine [address] [place] [address] Jessica Welsh, MONOMER PURIFICATION OPERATOR 40 [facility] [place] [place] [address] [email or web address] Medication Refill Social History Tobacco Use Types [...] documented as of this encounter Care Teams Rotary Bar Operator Relationship Specialty Start Date End Date Unknown, Unknown, PCP - General 11/23/23 documented as of this encounter Additional Source Comments The information contained in this document represents components of the legal health record. It is not the complete legal health record.[facility]
--- OUTSIDE RECORDS SUMMARY | 2024-11-30 17:57 | XMS_ITS | Encounter Summary ---
Author Organization [facility] Address [address] [facility] [address] [place] [address] Phone Care Team Providers Care Ssrs Report Developer Name Role Phone Unavailable Primary Care Provider Unavailabl e Encounter Details Date Type Department Care Team (Late st Contact Info) Description 12/25/2010 Hospital Encounter [facility],Outside Imaging [address] [place], [place] [id number] System, Provider Not In, PhD Partners [address] [address] Social History Tobacco Use Types Packs/Day Years [...] PhD IMG OUTSIDE I MAG[place] W/OUT INTERPRETATION documented in this encounter Visit [...] It is not the complete legal health record.[facility]
--- OUTSIDE RECORDS SUMMARY | 2024-11-30 17:57 | XMS_ITS | Encounter Summary ---
Author Organization [facility] Address [address] [place] [address] Phone Care Team Providers Care Black Studies Professor Name Role Phone NandoaleidaKamryn RN BUILDING Primary Care Provider Jessica Welsh PERFECT BIND MACHINE OPERATOR Primary Care Provider [phone] Unknown, Unknown Primary Care Provider Vashti freeman Encounter Details Date Type Department Care Team (Late st Contact Info) Description 12/24/2020 Ancillary Orders [facility],Outside Imaging [address] [place] [address] System, Provider Not In, [place] [address] Social History Tobacco Use Types Packs/Day Years [...] documented as of this encounter Care Teams Black Studies Professor Relationship Specialty Start Date End Date Kamryn Davis CNP [address] [place] [address] PCP - General Internal Medicine 11/21/20 08/01/23 Jessica Welsh NP [address] [place] [address] PCP - General Family Medicine 08/02/23 11/22/23 Unknown, Unknown, PCP - General 11/23/23 documented as of this encounter Additional Source Comments The information contained in this document represents components of the legal health record. It is not the complete legal health record.[facility]
--- OUTSIDE RECORDS SUMMARY | 2024-11-30 17:57 | XMS_ITS | Clinical Summary ---
Author Organization [facility] [employer] Address [address] [place] [address] Care Team Providers Care Oracle Manager Name Role Phone Pcp, No Primary Care Provider [phone] Social History Tobacco Use Types Packs/Day Years [...] Adults 18 yrs or above (or HM Modifier)([facility]) 1974 Hepatitis C Virus Infection in Adolescents and Adults: Screening (or Modifier) ([facility]) 1974 [facility] Screening Reminder: Viri bales for all adults ([facility]) 1974 Tobacco Smoking Cessation: i n Adults excluding Women: Behavioral and Pharmacotherapy Interventions ([facility]) 1974 Colorectal Cancer Screening 45 -75 Yrs (or HM Modifier) 2001 Colorectal Cancer: FLEXIBLE SIGMOIDOSCOPY Screening every 5 yrs 2001 Colorectal Cancer: Fecal Imm unochemical Test (FIT) Annually [facility] 2001 Colorectal Cancer: High-sens itivity gFOBT Screening Annually [facility] 2001 Colorectal Cancer: Stool Col oguard Screening every 3 yrs 2001 Colorectal Cancer:CT Colonog sheba Screening every 5 yrs 2001 Breast Cancer: Screening Viri uallkadie age 50-74 yrs (or HM Modifier)([facility]) 2006 Pneumococcal Vaccination Scr eening: Patients 65+ yrs of age ([facility]) (1 of 1 - PCV) 2006 Zoster/Shingles Vaccine Seri es Screening: Adults aged 18+ yrs (or HM Modifiers)([facility]) (2 of 2) 04/18/2021 02/21/2021 Osteoporosis Screening to Pr event Fractures: Women aged 65 years+ ([facility] ) 2021 DTaP/Tdap/Td Vaccines ([facility]) (2 - Td or Tdap) 03/07/2022 03/07/2012 Flu Vaccination: Ages 65+: Y early High Dose Recommended (or Modifier)([facility]) 04/20/2024 COVID-19 Vaccine Screening: Initial Series and Booster Status ([facility]) ( season) 2024 12/21/2020, 11/30/2020 Lipid Screening: Every 5 yrs for Women aged 45+ (or HM Modifier) ([facility]) 11/29/2025 11/29/2020 RSV Vaccines (1 - 1-dose 75+ series) 2031 [employer] Not on file Insurance MEDICARE , [place] [id number] Care Teams Oracle Manager Relationship Specialty Start Date End Date Pcp, No PCP - General Family Medicine 12/23/20
== END 2024-11-30 13:29 | disposition home or self-care (01) ==
LOC: HO.XRAY 13:28
PROVIDERS: PCP Internal Medicine; Visit Provider Internal Medicine
DX: M54.6 Pain in thoracic spine (principal); F32.A Depression, unspecified; E78.5 Hyperlipidemia, unspecified
CPT/HCPCS: 36415; 72100; 80048; 80061; 80076; 81001; 84443; 85027; 85652

== ENCOUNTER 2024-11-30 13:28 | Outpatient (AMB) | payer OTHER, MEDICAID, SELFPAY ==
--- NOTE | 2024-11-30 13:37 | MHC.PC.OV ---
Vital Signs 11/30/24 13:39 Height 5 ft 3 in Weight 157 lb 2 oz BMI 27.8 BP 120/68 Blood Pressure Location Lt brachial Position Sitting Pulse 95 Pulse Source Pulse Oximeter Temp 97.5 F Temp Source Temporal Artery Scan Pulse Oximetry (%) 92 Oxygen Delivery Method Room Air Intake Visit Reasons: 3mth f/u Intake Note: Patient is here to follow up on Chronic back pain, HLD, CRF, COPD. 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 Sprinkler Tender: Not Required per policy Accompanied by: Self / Same As Patient Allergies duloxetine Allergy (Intermediate, Uncoded 11/30/24 14:01) mood swings fenofibrate Allergy (Intermediate, Uncoded 11/30/24 14:01) leg pain tizanidine Allergy (Intermediate, Uncoded 11/30/24 14:01) ineffective topiramate Allergy (Unknown, Uncoded 11/30/24 14:01) sob Medication List - Last Reconciled 11/30/24 by Jerome Busby MD acetaminophen ER (Tylenol Arthritis Pain) 1,300 mg (2 x 650 mg) PO Q12H albuterol sulfate 90 mcg/actuation 1 inh inhalation QID PRN cholecalciferol (vitamin D3) 50 mcg PO DAILY citalopram 40 mg PO DAILY lkbxyvwvope-nftlecdgb-mdmgaaek 200-62.5-25 mcg (Trelegy Ellipta) 1 inh inhalation DAILY gabapentin 200 mg (2 x 100 mg) PO BID 90 days gabapentin 400 mg PO BEDTIME 90 days ipratropium-albuterol 0.5 mg-3 mg(2.5 mg base)/3 mL 3 mL inhalation BID 30 days methocarbamol 750 mg PO Q8H nystatin 1 appl topical DAILY 2 weeks omeprazole 20 mg PO DAILY Oxygen Home Use As directed pravastatin 10 mg PO BEDTIME Tobacco use date assessed: 11/30/24 Fall risk assessment: No Falls in past year Last assessed Fall Risk: 11/30/24 Dental Screening Dental Screen Date: 09/28/24 [facility] Medical History (Updated 11/30/24 @ 13:55 by Jerome Busby MD) Lower thoracic back pain Nicotine dependence, cigarettes, uncomplicated Peripheral neuropathy Insomnia Chronic respiratory failure History of abnormal cervical Pap smear History of COVID-19 (~09/2021) Surgical History History of D&C History of bladder surgery History of hysterectomy History of cholecystectomy History of appendectomy Family History Sister Lung cancer Mother DM2 (diabetes mellitus, type 2) Father Alzheimer disease Other Mental health disorder Social History Housing: Other (mobile home) Alcohol intake: never Patient Tobacco Use Status: Current everyday Tobacco user Tobacco use type: Cigarette Cigarette Packs Per Day: 1 Cigarettes Per Day: 20 Years Smoked: (onset 13yo, 1-2ppd x 53yrs, 60+PYH) e-Cigarette/Vaping Use: Never Used Second Hand Smoke Exposure: Yes service: No Current occupational status: retired Cognitive needs: No Hearing needs: No Vision needs: Yes (glasses) Questionnaire Thrive Questionnaire Date Thrive assessed: 09/28/24 FROYLAN-7 AMB Questionnaire FROYLAN-7 Date FROYLAN - 7 assessed: 09/28/24 Source: Developed by Drs. Igor Fernandez, Nae Galdamez, Cole Eaton and colleagues, with an educational bronwyn from [email or web address]. Physical exam (Primary Care) Vital Signs: Last Vital Signs Temp 97.5 F 11/30/24 13:39 Pulse 95 11/30/24 13:39 BP 120/68 11/30/24 13:39 Pulse Ox 92 11/30/24 13:39 Oxygen Delivery Method Room Air 11/30/24 13:39 BMI result Body Mass Index 27.8 Tobacco/Smoking Status: Tobacco use Status Tobacco use date assessed 11/30/24 11/30/24 13:44 Patient Tobacco Use Status Current everyday Tobacco 11/30/24 13:44 Tobacco use type Cigarette 11/30/24 13:44 e-Cigarette/Vaping Use Never Used 11/30/24 13:44 Thrive Assessment: Date of Thrive Assessment Date Thrive assessed 09/28/24 11/30/24 13:44 Coding Level of Care Code Est Pt Level 4 (52609) Complex EM visit Add On G2211 Diagnoses Lower thoracic back pain M54.6 Depression F32.A Hyperlipidemia E78.5 Assessment & Plan Assessment & Plan (1) Lower thoracic back pain: Code(s): M54.6 - Pain in thoracic spine Category: Medical Plan: X ray ordered. Celebrex for pain relief. Patient declining PT, her insurance does not cover the full cost. (2) Depression: Code(s): F32.A - Depression, unspecified Category: Medical Plan: Continue Current Medications (3) Hyperlipidemia: Code(s): E78.5 - Hyperlipidemia, unspecified Category: Medical Plan: Fasting bw ordered Plan History of Present Illness The patient is a 69-year-old female presenting with chronic back pain. Pain management has been challenging, with muscle relaxants proving ineffective. The patient describes the pain as deep and unusual, indicative of possible involvement beyond superficial muscles, possibly related to bone spurs. Factors such as a history of ulcers and hiatal hernia limit her use of anti-inflammatory medications. She reports using a heating pad for symptomatic relief. Attempts at physical therapy were limited due to insurance constraints. The patient is working on reducing tobacco use to manage her underlying respiratory condition. She experienced a transient chest pain episode recently, attributing it to gas rather than cardiac causes. Social History - Smoking: Actively attempting to reduce, but acknowledges the need to quit for better respiratory health. 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 - Living Situation: Lives in [place] and appreciates being home; enjoys fdc. - Transportation: Relies on family support, daughter visiting from [place] assisting with healthcare tasks. - Financial: Limited insurance coverage for physical therapy leads to avoidance due to cost. Review of Systems - Cardiovascular: Reports recent chest pain, considers it gas-related. - Gastrointestinal: Denies current usage of laxatives such as MiraLax. - Musculoskeletal: Reports ongoing back pain, side pain, and possible deeper involvement. Physical Exam General: Cooperative and healthy appearing Nutritional Appearance: Well nourished Orientation/consciousness: Patient oriented x3 Limitations: No limitations Head: Normal to inspection General: Appearance normal, both eyes and all related structures Neck: Normal visual inspection Chest: Normal palpation of entire chest wall Respiratory: Normal respiratory effort Neurology: Patient oriented x3 Results - Tests: Recent mammogram as mentioned in conversation. Plan I will prescribe Celecoxib Celebrex) to address chronic back pain and potential benefits on underlying arthritis. Muscle relaxants remain an option for symptom management, subject to patient compliance. X-ray imaging of the spine is planned to further assess causes related to bone spurs. Emphasizing smoking cessation is critical due to her COPD. I recommended continuing non-pharmaceutical pain management practices like heat application. Patient was informed and verbally consented to the use of an ambient scribe for clinic note documentation during this visit. Discussion Notes I explained the rationale behind using Celecoxib (Celebrex) for managing her back pain while considering her ulcer history. We discussed the potential benefits and risks of the medication, focusing on its suitability given her limitations with NSAIDs. X-rays are recommended to explore structural causes of her symptoms. The significance of ceasing tobacco use for her COPD was reiterated. We highlighted continuation of using non-pharmacological methods such as a heating pad and ensured understanding of the importance of a comprehensive approach to her pain management. No immediate changes in her respiratory management were planned, beyond encouraging reduced tobacco use. She is aware of the need for further investigation into her symptoms through imaging and possible future bone density assessments. Patient Instructions - Take Celecoxib (Celebrex) as prescribed for back pain. - Continue using a heating pad for additional pain relief. - Schedule an X-ray of your spine as discussed. - Avoid NSAIDs like ibuprofen due to a history of ulcers. - Focus on quitting smoking to improve respiratory health. - Notify the clinic if chest pain recurs or if there are significant changes in symptoms. Orders: Orders Basic Metabolic Panel Today E78.5 - Hyperlipidemia, unspecified, F32.A - Depression, unspecified, M54.6 - Pain in thoracic spine UA and rflx microscopic Today E78.5 - Hyperlipidemia, unspecified, F32.A - Depression, unspecified, M54.6 - Pain in thoracic spine Thyroid Stimulating Hormone Today E78.5 - Hyperlipidemia, unspecified, F32.A - Depression, unspecified, M54.6 - Pain in thoracic spine XR lumbar spine 2-3V Today E78.5 - Hyperlipidemia, unspecified, F32.A - Depression, unspecified, M54.6 - Pain in thoracic spine Complete Blood Count no Diff Today E78.5 - Hyperlipidemia, unspecified, F32.A - Depression, unspecified, M54.6 - Pain in thoracic spine Erythrocyte Sedimentation Rate Today E78.5 - Hyperlipidemia, unspecified, F32.A - Depression, unspecified, M54.6 - Pain in thoracic spine Lipid Panel Today E78.5 - Hyperlipidemia, unspecified, F32.A - Depression, unspecified, M54.6 - Pain in thoracic spine Liver Panel Today E78.5 - Hyperlipidemia, unspecified, F32.A - Depression, unspecified, M54.6 - Pain in thoracic spine Medications: Discontinued docusate sodium Discontinued Reason: Doctor's Order 200 mg (2 x 100 mg) PO BEDTIME 180 caps 3RF K59.00 - Constipation, unspecified bisacodyl (Dulcolax (bisacodyl)) take 4 tabs at noon the day before your colonoscopy Discontinued Reason: Doctor's Order 20 mg (4 x 5 mg) PO ONCE 4 tabs 0RF 1 day Z12.11 - Encounter for screening for malignant neoplasm of colon hydrocortisone 2.5% (Proctosol HC) Discontinued Reason: Doctor's Order 1 appl GA BID-QID PRN 30 grams 2RF hemorrhoids K64.9 - Unspecified hemorrhoids polyethylene glycol 3350 (Miralax) Take as directed by mouth the day before your procedure. Discontinued Reason: Doctor's Order 238 grams PO ONCE 238 grams 0RF 1 day prednisone Discontinued Reason: Doctor's Order 40 mg (2 x 20 mg) PO DAILY 10 tabs 0RF 5 days polyethylene glycol 3350 (Miralax) As directed by gastroenterology department at [facility] Discontinued Reason: Doctor's Order 238 grams PO ONCE 238 grams 0RF Z12.11 - Encounter for screening for malignant neoplasm of colon bisacodyl (Dulcolax (bisacodyl)) the day before colonoscopy take 2 pills at 12pm and 2 pills at 5pm Discontinued Reason: Doctor's Order 20 mg (4 x 5 mg) PO ONCE 4 tabs 0RF 1 day
[2024-11-30 13:39] VITALS: BP 120/68; PULSE 95; TEMP 36.4; O2SAT 92; BMI 27.8
--- OUTSIDE RECORDS SUMMARY | 2024-11-30 17:03 | XMS_ITS | Clinical Summary ---
Author Organization [facility] [employer] Address [address] [place] [address] Care Team Providers Care Exhibition Carver Name Role Phone Pcp, No Primary Care Provider [phone] Social History Tobacco Use Types Packs/Day Years Used Date Smoking Tobacco: Never Assessed Comments Unknown Sex and Gender Information Value Date Recorded Sex Assigned at Not on file Legal Sex Female 12:34 PM EDT Gender Identity Not on file Sexual Orientation Not on file Plan of Treatment Health Maintenance Due Date Last Done Comments Colorectal Cancer: COLONOSCO PY Screening every 10 yrs (or Modifier) 1955 Depression: Screening Annual ly using PHQ-2/9 in Adults 18 yrs or above (or HM Modifier)([facility]) 1974 Hepatitis C Virus Infection in Adolescents and Adults: Screening (or Modifier) ([facility]) [address] [facility] Screening Reminder: Viri bales for all adults ([facility]) 1974 Tobacco Smoking Cessation: i n Adults excluding Women: Behavioral and Pharmacotherapy Interventions ([facility]) 1974 Colorectal Cancer Screening 45 -75 Yrs (or HM Modifier) 2001 Colorectal Cancer: FLEXIBLE SIGMOIDOSCOPY Screening every 5 yrs 2001 Colorectal Cancer: Fecal Imm unochemical Test (FIT) Annually [facility] 2001 Colorectal Cancer: High-sens itivity gFOBT Screening Annually [facility] 2001 Colorectal Cancer: Stool Col oguard Screening every 3 yrs 2001 Colorectal Cancer:CT Colonog sheba Screening every 5 yrs 2001 Breast Cancer: Screening Viri uallkadie age 50-74 yrs (or HM Modifier)([facility]) 2006 Pneumococcal Vaccination Scr eening: Patients 65+ yrs of age ([facility]) (1 of 1 - PCV) 2006 Zoster/Shingles Vaccine Seri es Screening: Adults aged 18+ yrs (or HM Modifiers)([facility]) (2 of 2) 04/18/2021 02/21/2021 Osteoporosis Screening to Pr event Fractures: Women aged 65 years+ ([facility] ) 2021 DTaP/Tdap/Td Vaccines ([facility]) (2 - Td or Tdap) 03/07/2022 03/07/2012 Flu Vaccination: Ages 65+: Y early High Dose Recommended (or Modifier)([facility]) 04/20/2024 COVID-19 Vaccine Screening: Initial Series and Booster Status ([facility]) ( season) 2024 12/21/2020, 11/30/2020 Lipid Screening: Every 5 yrs for Women aged 45+ (or HM Modifier) ([facility]) 11/29/2025 11/29/2020 RSV Vaccines (1 - 1-dose 75+ series) 2031 Medical Devices Not on file Insurance MEDICARE , [place] [id number] Care Teams Exhibition Carver Relationship Specialty Start Date End Date Pcp, No PCP - General Family Medicine 12/23/20
--- OUTSIDE RECORDS SUMMARY | 2024-11-30 17:03 | XMS_ITS | Encounter Summary ---
Author Organization [facility] Address [address] [place] [phone] Phone Care Team Providers Care Emergency Services Dispatcher Name Role Phone NandoaleidaKamryn RN ACUTE DIALYSIS Primary Care Provider Jessica Welsh TECHNICAL SUPPORT DIRECTOR Primary Care Provider Unknown, Unknown Primary Care Provider Vashti freeman Encounter Details Date Type Department Care Team (Late st Contact Info) Description 12/24/2020 Ancillary Orders [facility],Outside Imaging [address] [place] [address] System, Provider Not In, [place] [address] Social History Tobacco Use Types Packs/Day Years Used Date Smoking Tobacco: Some Days Cigarettes 1 50 Smokeless Tobacco: Never Alcohol Use Standard Drinks/Week Comments Yes 0 (1 standard drink = 0.6 oz pur e alcohol) occassional Sex and Gender Information Value Date Recorded Sex Assigned at Not on file Gender Identity Not on file Sexual Orientation Not on file documented as of this encounter Plan of Treatment Not on file documented as of this encounter Results * Mammogram Outside (No Interpretation) (08/30/2015 12:00 AM EST) Narrative SYSTEMGENERATED, DOCUMENTATION - 12/24/2020 1:20 PM EDT This study is for PACS storage only and not for interpretation. Provider Not In System PhD IMG OUTSIDE I MAGING W/OUT INTERPRETATION * Mammogram Outside (No Interpretation) (12/25/2010 12:00 AM EDT) Narrative SYSTEMGENERATED, DOCUMENTATION - 12/24/2020 1:20 PM EDT This study is for PACS storage only and not for interpretation. Provider Not In System PhD IMG OUTSIDE I [place] W/OUT INTERPRETATION documented in this encounter Visit Diagnoses Not on filedocumented in this encounter Additional Health Concerns Infection Onset Date Last Indicated Resolved Time CoV-Risk Comment:Per Ambulatory Triage Form 10/01/2021 10/01/202110/01 10:22 AM EST CoV-Presumed 10/01/2021 10/01/2021 10/22/2021 1:21 AM EST Assessment Noted Time PHQ-9 Depression Total Score: 15 021 11:31 AM EST PHQ-2 Depression Total Score: 6 11/29/19 21 11:31 AM EST documented as of this encounter Care Teams Emergency Services Dispatcher Relationship Specialty Start Date End Date Kamryn Davis CNP [address] [place] [address] PCP - General Internal Medicine 11/21/20 08/01/23 Jessica Welsh NP [address] [place] [address] PCP - General Family Medicine 08/02/23 11/22/23 Unknown, Unknown, PCP - General 11/23/23 documented as of this encounter Additional Source Comments The information contained in this document represents components of the legal health record. It is not the complete legal health record.[facility]
--- OUTSIDE RECORDS SUMMARY | 2024-11-30 17:04 | XMS_ITS | Clinical Summary ---
Author Organization [facility] Address [address] [place] [phone] Phone Care Team Providers Care Telephone Service Representative Name Role Phone Unknown, Unknown Primary Care Provider Vashti freeman Allergies Active Allergy Reactions Criticality Noted Date Comments Topiramate Fatigue Low 11/28/2020 Varenicline Hallucinations High 12/19/2020 Medications Medication Sig Dispensed Refills Start Date End Date Status ADVAIR DISKUS 500-50 mcg/dose DISKUSIndications:Ast hma-COPD overlap syndrome TAKE 1 PUFF BY MOUTH TWICE A DAY 180 each 1 05/20/2021 Active diazePAM (VALIUM) 5 MG tablet Take 1 tablet (5 mg total) by mouth every 8 (eight) hours as needed for anxiety. 30 tablet 06/19/2021 Active albuterol 90 mcg/actuation inhaler Inhale 2 puffs into the lungs 4 (four) times a day. 18 g 1 08/21/2021 Active dexAMETHasone (DECADRON) 6 MG tablet 10/03/2021 Active INCRUSE ELLIPTA 62.5 mcg/actuation inhalation INHALE 1 PUFF BY MOUTH EVERY 24 HOURS (DOSES SHOULD BE AT LEAST 24 HOURS APART) 11/25/2021 Active clonazePAM (KLONOPIN) 0.5 MG tablet Take 1 tablet (0.5 mg total) by mouth 2 (two) times a day. 60 tablet 02/26/2022 Active FLUoxetine (PROZAC) 40 MG capsuleIndications:Jacques moore depressive disorder, recurrent episode with anxious distress Take 1 capsule (40 mg total) by mouth daily. 30 capsule 11 03/24/2022 Active omeprazole (PRILOSEC) 20 MG capsuleIndications:Ga stroesophageal reflux disease, unspecified whether esophagitis present take 1 capsule by mouth every day 90 capsule 3 10/05/2023 Active Active Problems Problem Noted Date Diagnosed Date Insomnia, psychophysiological 12/22/2020 Recurrent UTI 12/22/2020 Microhematuria 12/22/2020 Gastroesophageal reflux disease 11/28/2020 Memory change 11/28/2020 Pulmonary nodule 11/28/2020 Chronic obstructive pulmonary disease 01/23/2016 Encounters Date Type Department Care Team Description 11/12/2024 [facility] [address] [place] [address] Jessica Welsh, [place] Medication Refill from Last 3 Months Immunizations Name Administration Dates Next Due COVID-19 (Pre-07/12) Pfizer Vaccine, mRNA, PF ,11/30/2020 Influenza Quadrivalent Preservative Free IM 12/0 10/2020,06/22/2016 Pneumococcal conjugate PCV13 09/20/2008 Pneumococcal polysaccharide PPSV23 05/07/2015 Tdap 03/07/2012 Zoster recombinant 02/21/2021 Family History Medical History Relation Comments Hiatal hernia Brother Kidney disease Daughter 1 Nephrolithiasis Daughter 2 No Known Problems Daughter 3 Alzheimer's disease Father Hiatal hernia Father Hypertension Father Diabetes Mother Hypertension Mother Diabetes Sister 1 Thyroid disease Sister 1 Lung cancer Sister 2 small-cell Relation Status Comments Brother Alive Daughter 1 Alive Daughter 2 Alive Daughter 3 Alive Father (Age 81) Mother Alive Sister 1 Alive Sister 2 Alive Social History Tobacco Use Types Packs/Day Years Used Date Smoking Tobacco: Some Days Cigarettes 0.8 50 Smokeless Tobacco: Never Tobacco Cessation:Ready to Q uit: No; Counseling Given: No Comments:10 cigarettes daily if that Alcohol Use [...] with a working camera? Not on file Sex and Gender Information Value Date Recorded Sex Assigned at Not on file Gender Identity Not on file Sexual Orientation Not on file Last Filed Vital Signs Vital Sign Reading Time Taken Comments Blood Pressure 114/64 08/21/2021 10:16 AM EST Pulse 78 08/21/2021 10:16 AM EST Temperature 36.3 ??C (97.3 ??F) 11/28/2020 11:[address] Respiratory Rate 16 08/21/2021 10:16 AM EST Oxygen Saturation 94% 08/21/2021 10:16 AM EST Inhaled Oxygen Concentration - - Weight 70.8 kg (156 lb) 08/21/2021 10:16 AM EST Height 157.5 cm (5' 2.01 ) 08/21/2021 10:[address] Body Mass Index 28.53 08/21/2021 10:16 AM EST Plan of Treatment Health Maintenance Due Date Last Done Comments SMOKING Hx and SMOKELESS TOBACCO SCREENING 1969 COLOGUARD 2001 COLONOSCOPY 2001 COLORECTAL CANCER SCREENING 2001 FIT TEST 2001 FOBT 2001 SIGMOIDOSCOPY 2001 VIRTUAL COLONOSCOPY 2001 RSV VACCINE (1 - Risk 60-74 years 1-dose series) 2016 MAMMOGRAM 08/30/2017 08/30/2015, 12/25/2010 PNEUMOCOCCAL VACCINES (50+ years) (3 of 3 - PCV20 or PCV21) 05/07/2020 05/07/2015, 09/20/2008 ZOSTER VACCINES (2 of 2) 04/18/2021 02/21/2021 OSTEOPOROSIS SCREENING INITI AL (ONE-TIME) 2021 DEPRESSION SCREENING 02/18/2022 02/18/2021, 11/28/2020 Adult Td,Tdap Booster 03/07/2022 03/07/2012 INFLUENZA VACCINE (#1) 2024 , 06/22/2016 COVID-19 VACCINE (3 - 2023-2 5 season) 2024 12/21/2020, 11/30/2020 LIPID PANEL 11/29/2025 11/29/2020 HEPATITIS C SCREENING Completed 06/26/2021 HEPATITIS A VACCINES Aged Out No long er eligible based on patient's age to complete this topic HIB VACCINES Aged Out No longer eligi ble based on patient's age to complete this topic MENINGOCOCCAL VACCINES (ACWY) Aged Out No longer eligible based on patient's age to complete this topic Medical Devices Not on file Procedures Procedure Name Priority Date/Time Associated Diagnosis Comments HEPATITIS C ANTIBODY, QUALITATIVE Routine 06/26/2021 7:10 AM EDT Exposure to hepatitis C LIPID PANEL Routine 11/29/2020 8:02 AM EST Well adult exam BI MAMMOGRAM OUTSIDE (NO INTERPRETATION) Routine 08/30/2015 12:00 AM EST from Last 3 Months or Most Recently Relevant to Health Maintenance Results * Hepatitis C antibody, qualitative (06/26/2021 7:10 AM EDT) Blood Kamryn Davis [facility] BLOOD [facility] EXTERNAL NON-INTERFACED REF LAB * (ABNORMAL) Lipid panel (11/29/2020 8:02 AM EST) HDL 41 mg/dL [facility] Comment: ? Interpretation <40 mg/dL: Low HDL cholesterol (major risk factor for CHD) Greater than or equal to 60 mg/dL: High HDL cholesterol ( negative risk factor for CHD) HDL - cholesterol is affected by a number of factors, e.g. smoking, excerise, hormones, sex and age. CHOLESTEROL 226 0 - 240 mg/dL [facility] TRIGLYCERIDES 247(H) 30 - 160 mg/dL [facility] LDL 136(H) 50 - 129 mg/dL [facility] Comment: LDL levels in terms of risk for coronary heart disease: <100 mg/dL: Optimal 100-129 mg/dL: Near or above optimal 130-159 mg/dL: Borderline high 160-189 mg/dL: High >190 mg/dL: Very High CARDIAC RISK RATIO 5.5(H) 3.3 - 4.4 C [facility] Blood 11/29/2020 8:02 AM EST 11/29/2020 8:07 AM EST Kamryn Davis [facility] Performing Organization Address City/[facility] Co de Phone Number [address] [address] * Mammogram Outside (No Interpretation) (08/30/2015 12:00 AM EST) Narrative SYSTEMGENERATED, DOCUMENTATION - 12/24/2020 1:20 PM EDT This study is for PACS storage only and not for interpretation. Provider Not In System PhD IMG OUTSIDE I [place] W/OUT INTERPRETATION from Last 3 Months or Most Recently Relevant to Health Maintenance Ulises, Amy Personal/Family Self [address] [place] [address] Ulises, Amy Personal/Family Self [address] [place] [address] [place], Amy Personal/Family Self [address] [place] [address] [place], Amy Personal/Family Self [address] [place] [address] [place], Amy Personal/Family Self [address] [place] [address] [place], Amy Personal/Family Self [address] [place] [address] [place], Amy Personal/Family Self [address] [place] [id number] [place], Amy Personal/Family Self [address] [place] [address] Care Teams Telephone Service Representative Relationship Specialty Start Date End Date Unknown, Unknown, PCP - General 11/23/23 Additional Source Comments The information contained in this document represents components of the legal health record. It is not the complete legal health record.[facility]
--- OUTSIDE RECORDS SUMMARY | 2024-11-30 17:04 | XMS_ITS | Encounter Summary ---
Author Organization [facility] Address [address] [facility] [address] [place] [address] Phone Care Team Providers Care Coal Mill Operator Name Role Phone Unknown, Unknown Primary Care Provider Vashti freeman Reason for Visit * Reason Comments Medication Refill Encounter Details Date Type Department Care Team (Late st Contact Info) Description 11/12/2024 Refill [facility] Medical [facility] Internal Medicine [address] [place] [address] Jessica Welsh, EMERGENCY ROOM RN 40 [facility] [place] [address] [email or web address] Medication Refill Social History Tobacco Use Types Packs/Day Years [...] your housing situation today? I have colby garcia 02/21/2021 How many times have you move [...] on file documented as of this encounter Visit Diagnoses Diagnosis Gastroesophageal reflux disease, unspecified whether esophagitis present documented in this encounter Additional Health Concerns Assessment Noted Time PHQ-9 Depression Total Score: 15 021 11:31 AM EST PHQ-2 Depression Total Score: 0 02/19/20 21 10:42 AM EDT documented as of this encounter Care Teams Coal Mill Operator Relationship Specialty Start Date End Date Unknown, Unknown, PCP - General 11/23/23 documented as of this encounter Additional Source Comments The information contained in this document represents components of the legal health record. It is not the complete legal health record.[facility]
== END 2024-11-30 13:55 | disposition home or self-care (01) ==
LOC: HO.HMCH 13:28
PROVIDERS: PCP Internal Medicine; Visit Provider Internal Medicine
DX: M54.6 Pain in thoracic spine (principal); F32.A Depression, unspecified; E78.5 Hyperlipidemia, unspecified

== ENCOUNTER → 2024-11-30 14:13 | Outpatient (BNV) | payer OTHER, MEDICAID, SELFPAY | PROVIDERS: PCP Internal Medicine; Visit Provider Radiology Diagnostic Radiology | DX: M51.360 Other intervertebral disc degeneration, lumbar region with discogenic back pain only (principal) | CPT/HCPCS: 72100 ==

== ENCOUNTER 2025-05-10 14:42 | Outpatient (AMB) | payer OTHER, SELFPAY ==
--- OUTSIDE RECORDS SUMMARY | 2010-12-25 | XMS_ITS | Encounter Summary ---
Author Organization [facility] Address [address] [facility] [address] [place] [phone] Phone Care Team Providers Care General Helper Name Role Phone Unavailable Primary Care Provider Unavailabl e Encounter Details Date Type Department Care Team (Late st Contact Info) Description 12/25/2010 Hospital Encounter [facility],Outside Imaging [address] [place], [place] [phone] System, Provider Not In, [facility] [address] [address] Social History Tobacco Use Types Packs/Day Years [...] It is not the complete legal health record.[facility]
--- OUTSIDE RECORDS SUMMARY | 2025-05-10 14:46 | XMS_ITS | Clinical Summary ---
Author Organization [facility] [employer] Address [address] [place] [address] Care Team Providers Care Air Deodorizer Servicer Name Role Phone Pcp, No Primary Care Provider [phone] Social History Tobacco Use Types Packs/Day Years [...] Adults 18 yrs or above (or HM Modifier)([facility]) 1974 Hepatitis C Virus Infection in Adolescents and Adults: Screening (or Modifier) ([facility]) 1974 [facility] Screening Reminder: Viri bales for all adults ([facility]) 1974 Tobacco Smoking Cessation: i n Adults excluding Women: Behavioral and Pharmacotherapy Interventions ([facility]) 1974 Colorectal Cancer Screening 45 -75 Yrs (or HM Modifier) 2001 Colorectal Cancer: FLEXIBLE SIGMOIDOSCOPY Screening every 5 yrs 2001 Colorectal Cancer: Fecal Imm unochemical Test (FIT) Annually [facility] 2001 Colorectal Cancer: High-sens itivity gFOBT Screening Annually [facility] 2001 Colorectal Cancer: Stool Col oguard Screening every 3 yrs 2001 Colorectal Cancer:CT Colonog sheba Screening every 5 yrs 2001 Breast Cancer: Screening Viri uallkadie age 50-74 yrs (or HM Modifier)([facility]) 2006 Pneumococcal Vaccination Scr eening: Patients 50+ yrs of age ([facility]) (1 of 1 - PCV) 2006 Zoster/Shingles Vaccine Seri es Screening: Adults aged 18+ yrs (or HM Modifiers)([facility]) (2 of 2) 04/18/2021 02/21/2021 Osteoporosis Screening to Pr event Fractures: Women aged 65 years+ ([facility] ) 2021 DTaP/Tdap/Td Vaccines ([facility]) (2 - Td or Tdap) 03/07/2022 03/07/2012 COVID-19 Vaccine Screening: Initial Series and Booster Status ([facility]) ( - 2023- season) 2024 12/21/2020, 11/30/2020 Flu Vaccination: Ages 65+: Y early High Dose Recommended (or Modifier)([facility]) 04/20/2025 RSV Vaccines (1 - 1-dose 75+ series) 2031 [employer] Not on file Insurance MEDICARE Care Teams Air Deodorizer Servicer Relationship Specialty Start Date End Date Pcp, Deanna PCP - General Family Medicine 12/23/20
[2025-05-10 14:48] VITALS: BP 114/64; PULSE 111; TEMP 36.2; O2SAT 92; BMI 28.3
--- NOTE | 2025-05-10 14:48 | MHC.PC.OV ---
Vital Signs 05/10/25 14:48 Height 5 ft 3 in Weight 160 lb BMI 28.3 BP 114/64 Blood Pressure Location Lt brachial Position Sitting Pulse 111 H Pulse Source Pulse Oximeter Temp 97.1 F Temp Source Temporal Artery Scan Pulse Oximetry (%) 92 Oxygen Delivery Method Room Air Intake Visit Reasons: Blister, stomach problems - see comments Accompanied by: Daughter Allergies duloxetine Allergy (Intermediate, Uncoded 05/10/25 15:36) mood swings fenofibrate Allergy (Intermediate, Uncoded 05/10/25 15:36) leg pain tizanidine Allergy (Intermediate, Uncoded 05/10/25 15:36) ineffective topiramate Allergy (Unknown, Uncoded 05/10/25 15:36) sob Medication List - Last Reconciled 05/10/25 by Jerome Busby MD acetaminophen ER (Tylenol Arthritis Pain) 1,300 mg (2 x 650 mg) PO Q12H albuterol sulfate 90 mcg/actuation 1 inh inhalation QID PRN cholecalciferol (vitamin D3) 50 mcg PO DAILY citalopram 40 mg PO DAILY nfemvscdhfr-mynwuzoaa-xtaevbbj 200-62.5-25 mcg (Trelegy Ellipta) 1 inh inhalation DAILY gabapentin 400 mg PO BID 90 days ipratropium-albuterol 0.5 mg-3 mg(2.5 mg base)/3 mL 3 mL inhalation BID 30 days nystatin 1 appl topical DAILY 2 weeks omeprazole 20 mg PO DAILY Oxygen Home Use As directed pravastatin 10 mg PO BEDTIME Tobacco use date assessed: 11/30/24 Fall risk assessment: 1 Fall in past year Last assessed Fall Risk: 05/10/25 Dental Screening Dental Screen Date: 05/10/25 Did you have a dental visit in the last 12 months?: No Did you have a dental problem in the last 6 months where you did not have access to dental care?: No Was dental information given to patient?: Patient declined HPI Blister, stomach problems - see comments HPI Details 69-year-old female presents to the office to discuss her chronic medical conditions. She is accompanied by her daughter. Patient is complaining of burning sensation in her hands. She already has burning sensation in her legs which is controlled with the current dosage of gabapentin. She is now having more discomfort in the palms of her hand, especially the left. Patient is also having worsening lower back pain. She has stopped taking NSAIDs. She would like some medications for relief if the pain gets excruciating. She is walking independently and able to function. Patient has wart in the perineal area. She took a picture of the same at home for me to see. Patient has COPD with regular use of oxygen. She would like a smaller tank or a portable tank of the same. [facility] Medical History Lower thoracic back pain Nicotine dependence, cigarettes, uncomplicated Peripheral neuropathy Insomnia Chronic respiratory failure History of abnormal cervical Pap smear History of COVID-19 (~09/2021) Surgical History History of D&C History of bladder surgery History of hysterectomy History of cholecystectomy History of appendectomy Family History Sister Lung cancer Mother DM2 (diabetes mellitus, type 2) Father Alzheimer disease Other Mental health disorder Social History Housing: Other (mobile home) Alcohol intake: never Patient Tobacco Use Status: Current everyday Tobacco user Tobacco use type: Cigarette Cigarette Packs Per Day: 1 Cigarettes Per Day: 40 Years Smoked: (onset 13yo, 1-2ppd x 53yrs, 60+PYH) e-Cigarette/Vaping Use: Never Used Second Hand Smoke Exposure: Yes service: No Current occupational status: retired Cognitive needs: No Hearing needs: No Vision needs: Yes (glasses) Questionnaire PHQ-9 Over the last 2 weeks, how often have you been bothered by any of the following problems? 1. Little interest or pleasure in doing things: nearly every day 2. Feeling down, depressed, or hopeless: nearly every day 3. Trouble falling or staying asleep, or sleeping too much: nearly every day 4. Feeling tired or having little energy: nearly every day 5. Poor appetite or overeating: nearly every day 6. Feeling bad about yourself - or that you are a failure or have let yourself or your family down: not at all 7. Trouble concentrating on things, such as reading the newspaper or watching television: not at all 8. Moving or speaking so slowly that other people could have noticed. Or the opposite - being so fidgety or restless that you have been moving around a lot more than usual: not at all 9. Thoughts that you would be better off or of hurting yourself in some way: not at all Total score: 15 Depression Screening Interpretation: Positive Depression Screening Done: Yes Source: Developed by Drs. Igor Fernandez, Nae Galdamez, Cole Eaton and colleagues, with an educational bronwyn from [employer]. Thrive Questionnaire Date Thrive assessed: 09/28/24 I am a: Patient What is your living situation today?: I have a steady place to live Within the past 12 months, did the food you bought not last and you didn't have the money to get more?: Often true Within the past 12 months, did you worry whether your food would run out before you got money to buy more?: Often true Do you have trouble paying for medicines?: No Do you have trouble getting transportation to medical appointments?: No Do you have trouble paying your heating and electricity bill?: Yes Do you have trouble taking care of your child, family member or friend?: No Do you have trouble with day-to-day activities such as bathing, preparing meals, shopping, managing finances, etc.?: Yes Are you currently unemployed and looking for a job?: No Are you interested in more education?: No Please select the resources that you would like help with: Care for elder or disabled Currently or been in a relationship where the following occur: No concerns reported THRIVE Score: 3 AUDIT C Alcohol Use Questionnaire (AUDIT-C) 1. How often do you have a drink containing alcohol?: Never 3. How often do you have six or more drinks on one occasion?: Never Total Score: 0 FROYLAN-7 AMB Questionnaire FROYLAN-7 Date FROYLAN - 7 assessed: 09/28/24 Feeling nervous, anxious, or on edge: 1 = Several days Not being able to stop or control worryin = More than half the days Worrying too much about different things: 2 = More than half the days Trouble relaxin = More than half the days Being so restless that it is hard to sit still: 2 = More than half the days Becoming easily annoyed or irritable: 0 = Not at all Feeling afraid as if something awful might happen: 0 = Not at all Total FROYLAN-7 score (0-4 normal; 5-9 mild; 10-14 moderate; 15-21 severe): 9 Source: Developed by Drs. Igor Fernandez, Nae Galdamez, Cole Eaton and colleagues, with an educational bronwyn from [employer]. Physical exam (Primary Care) Vital Signs: Last Vital Signs Temp 97.1 F 05/10/25 14:48 Pulse 111 H 05/10/25 14:48 BP 114/64 05/10/25 14:48 Pulse Ox 92 05/10/25 14:48 Oxygen Delivery Method Room Air 05/10/25 14:48 BMI result Body Mass Index 28.3 Tobacco/Smoking Status: Tobacco use Status Tobacco use date assessed 11/30/24 05/10/25 14:59 Patient Tobacco Use Status Current everyday Tobacco 05/10/25 14:59 Tobacco use type Cigarette 05/10/25 14:59 e-Cigarette/Vaping Use Never Used 05/10/25 14:59 PHQ-9: PHQ-9 Score PHQ-9: Total score 15 05/10/25 14:59 Depression Screening Interpretation: Positive Thrive Assessment: Date of Thrive Assessment Date Thrive assessed 09/28/24 05/10/25 14:59 Currently or been in a relationship where the following occur: No concerns reported Const General: cooperative and healthy appearing Nutritional Appearance: well nourished Orientation/consciousness: patient oriented x3 Limitations: no limitations HENMT Head: Yes normal to inspection Eyes General: appearance normal, both eyes and all related structures Neck Neck: Yes normal visual inspection Chest Chest palpation & inspection: normal palpation of entire chest wall Resp Effort & Inspection: normal respiratory effort Neuro General: patient oriented x3 Coding Level of Care Code Est Pt Level 4 (69976) Complex EM visit Add On G2211 Diagnoses Wart of perineum A63.0 Hyperlipidemia E78.5 Peripheral neuropathy G62.9 Chronic back pain M54.9; G89.29 COPD (chronic obstructive pulmonary disease) J44.9 Assessment & Plan Assessment & Plan (1) Wart of perineum: Code(s): A63.0 - Anogenital (venereal) warts Plan: Surgical appt given for excision (2) Hyperlipidemia: Code(s): E78.5 - Hyperlipidemia, unspecified Category: Medical Plan: Condition is stable (3) Peripheral neuropathy: Code(s): G62.9 - Polyneuropathy, unspecified Category: Medical Plan: Gabapentin has been increased to 400 mg twice a day. (4) Chronic back pain: Code(s): M54.9 - Dorsalgia, unspecified; G89.29 - Other chronic pain Category: Medical Plan: Tramadol 50 mg once a day added to the regimen for breakthrough pain. Informed her the dosage will not be increased (5) COPD (chronic obstructive pulmonary disease): Code(s): J44.9 - Chronic obstructive pulmonary disease, unspecified Category: Medical Plan: Request for smaller oxygen tank made. Orders: Orders Complete Blood Count no Diff Today E78.5 - Hyperlipidemia, unspecified Thyroid Stimulating Hormone Today E78.5 - Hyperlipidemia, unspecified MM screening mammo BI Today Z12.31 - Encounter for screening mammogram for malignant neoplasm of breast Basic Metabolic Panel Today E78.5 - Hyperlipidemia, unspecified Lipid Panel Today E78.5 - Hyperlipidemia, unspecified Liver Panel Today E78.5 - Hyperlipidemia, unspecified UA and rflx microscopic Today E78.5 - Hyperlipidemia, unspecified Referrals General Surgery Referral A63.0 - Anogenital (venereal) warts Medications: Changed From gabapentin 400 mg PO BEDTIME 90 days 90 caps 1RF To gabapentin 400 mg PO BID 180 caps 1RF 90 days Refilled pravastatin 10 mg PO BEDTIME 90 tabs 0RF E78.5 - Hyperlipidemia, unspecified nystatin 1 appl topical DAILY 15 grams 0RF 2 weeks Discontinued gabapentin Discontinued Reason: Doctor's Order 200 mg (2 x 100 mg) PO BID 90 days 360 caps 1RF
== END 2025-05-10 15:36 | disposition home or self-care (01) ==
LOC: HO.HMCH 14:43
PROVIDERS: PCP Internal Medicine; Visit Provider Internal Medicine
DX: J44.9 Chronic obstructive pulmonary disease, unspecified (principal); A63.0 Anogenital (venereal) warts; E78.5 Hyperlipidemia, unspecified; G62.9 Polyneuropathy, unspecified; M54.9 Dorsalgia, unspecified; G89.29 Other chronic pain

== ENCOUNTER 2025-05-25 09:08 | Outpatient (REF) | payer MEDICARE, SELFPAY ==
--- OUTSIDE RECORDS SUMMARY | 2010-12-25 | XMS_ITS | Encounter Summary ---
Author Organization [facility] Address [address] [facility] [address] [place] [phone] Phone Care Team Providers Care Rn Case Management Name Role Phone Unavailable Primary Care Provider Unavailabl e Encounter Details Date Type Department Care Team (Late st Contact Info) Description 12/25/2010 Hospital Encounter [facility],Outside Imaging [address] [place], [place] [phone] System, Provider Not In, [facility] [address] [address] Social History Tobacco Use Types Packs/Day Years [...] It is not the complete legal health record.[facility]
--- OUTSIDE RECORDS SUMMARY | 2025-05-25 09:57 | XMS_ITS | Clinical Summary ---
Author Organization [facility] [employer] Address [address] [place] [address] Care Team Providers Care Trip Motor Operator Name Role Phone Pcp, No Primary Care Provider [phone] Social History Tobacco Use Types Packs/Day Years [...] Adults 18 yrs or above (or HM Modifier)([facility]) 1974 Hepatitis C Virus Infection in Adolescents and Adults: Screening (or Modifier) ([facility]) 1974 [facility] Screening Reminder: Viri bales for all adults ([facility]) 1974 Tobacco Smoking Cessation: i n Adults excluding Women: Behavioral and Pharmacotherapy Interventions ([facility]) 1974 Colorectal Cancer Screening 45 -75 Yrs (or HM Modifier) 2001 Colorectal Cancer: FLEXIBLE SIGMOIDOSCOPY Screening every 5 yrs 2001 Colorectal Cancer: Fecal Imm unochemical Test (FIT) Annually [facility] 2001 Colorectal Cancer: High-sens itivity gFOBT Screening Annually [facility] 2001 Colorectal Cancer: Stool Col oguard Screening every 3 yrs 2001 Colorectal Cancer:CT Colonog sheba Screening every 5 yrs 2001 Breast Cancer: Screening Viri uallkadie age 50-74 yrs (or HM Modifier)([facility]) 2006 Pneumococcal Vaccination Scr eening: Patients 50+ yrs of age ([facility]) (1 of 1 - PCV) 2006 Zoster/Shingles Vaccine Seri es Screening: Adults aged 18+ yrs (or HM Modifiers)([facility]) (2 of 2) 04/18/2021 02/21/2021 Osteoporosis Screening to Pr event Fractures: Women aged 65 years+ ([facility]) 2021 DTaP/Tdap/Td Vaccines ([facility]) (2 - Td or Tdap) 2 03/07/2012 Flu Vaccination: Ages 65+: Y early High Dose Recommended (or Modifier)([facility]) 04/20/2025 RSV Vaccines (1 - 1-dose 75+ series) 2031 Medical Devices Not on file Insurance MEDICARE [place] [id number] Care Teams Trip Motor Operator Relationship Specialty Start Date End Date Deanna Dudley PCP - General Family Medicine 12/23/20
--- OUTSIDE RECORDS SUMMARY | 2025-05-25 09:57 | XMS_ITS | Encounter Summary ---
Author Organization [facility] Address [address] [place] [address] Phone Care Team Providers Care Fire Claims Adjuster Name Role Phone NandoaleidaKamryn STROBOROMA OPERATOR Primary Care Provider Jessica Welsh BAG CUTTER Primary Care Provider [phone] Unknown, Unknown Primary Care Provider Vashti freeman Encounter Details Date Type Department Care Team (Late st Contact Info) Description 12/24/2020 Ancillary Orders [facility],Outside Imaging [address] [place] [address] System, Provider Not In, [place] [address] Social History Tobacco Use Types Packs/Day Years Used Date Smoking Tobacco: Some Days Cigarettes 1 50 Smokeless Tobacco: Never Alcohol Use Standard Drinks/Week Comments Yes 0 (1 standard drink = 0.6 oz pur e alcohol) occassional Comments Unknown Sex and Gender Information Value [...] OUTSIDE IMAGING W /OUT INTERPRETATION Final Result * Mammogram Outside (No Interpretation) (12/25/2010 12:00 [...] documented as of this encounter Care Teams Fire Claims Adjuster Relationship Specialty Start Date End Date Kamryn Davis CNP [address] [place] [address] PCP - General Internal Medicine 11/21/20 08/01/23 Jessica Welsh NP [address] [place] [address] PCP - General Family Medicine 08/02/23 11/22/23 Unknown, Unknown, PCP - General 11/23/23 documented as of this encounter Additional Source Comments The information contained in this document represents components of the legal health record. It is not the complete legal health record.[facility]
--- OUTSIDE RECORDS SUMMARY | 2025-05-25 09:57 | XMS_ITS | Clinical Summary ---
Author Organization [facility] Address [address] [place] [address] Phone Care Team Providers Care Auto Parts Handler Name Role Phone Unknown, Unknown Primary Care Provider Vashti freeman Allergies Active Allergy Reactions Criticality Noted Date Comments Topiramate Fatigue Low 11/28/2020 Varenicline Hallucinations High 12/19/2020 Medications ADVAIR DISKUS 500-50 mcg/dose DISKUSIndication s:Asthma-COPD overlap syndrome TAKE 1 PUFF BY MOUTH [...] tablet 02/26/2022 Active FLUoxetine (PROZAC) 40 MG capsuleIndicatio ns:Major depressive disorder, recurrent episode with anxious distress Take 1 capsule (40 mg total) by mouth daily. 30 capsule 11 03/24/2022 Active omeprazole (PRILOSEC) 20 MG capsuleIndicatio ns:Gastroesophag eal reflux disease, unspecified whether esophagitis present take 1 capsule by mouth every day 90 capsule 3 10/05/2023 Active Active Problems Problem Noted Date Diagnosed Date Insomnia, psychophysiological 12/22/2020 Recurrent UTI 12/22/2020 Microhematuria 12/22/2020 Gastroesophageal reflux disease 11/28/2020 Memory change 11/28/2020 Pulmonary nodule 11/28/2020 Chronic obstructive pulmonary disease 01/23/2016 Immunizations Immunization Administration Dates Next Due COVID-19 (Pre-07/12) Pfizer Vaccine, mRNA, PF ,11/30/2020 Influenza Quadrivalent Preservative Free IM 10/2020,06/22/2016 Pneumococcal conjugate PCV13 09/20/2008 Pneumococcal polysaccharide [...] 78 08/21/2021 10:16 AM EST Temperature 36.3 C (97.3 F) 11/28/2020 11:09 AM EST Respiratory Rate 16 08/21/2021 10:16 AM EST [...] Td,Tdap Booster 03/07/2022 03/07/2012 INFLUENZA VACCINE (#1) 2025 , 06/22/2016 COVID-19 VACCINE (3 - 2024-2 6 season) 2025 12/21/2020, 11/30/2020 LIPID PANEL 11/29/2025 11/29/2020 HEPATITIS C SCREENING Completed 06/26/2021 HEPATITIS A VACCINES Aged Out No long er eligible based on patient's age to complete this topic HIB VACCINES Aged Out No longer eligi ble based on patient's age to complete this topic MENINGOCOCCAL VACCINES (ACWY) Aged Out No longer eligible based on patient's age to complete this topic MENINGOCOCCAL VACCINES (B) Aged Out N o longer eligible based on patient's age to [...] antibody, qualitative (06/26/2021 7:10 AM EDT) Blood us Kamryn Davis DRAFTER ENGINEERING LAB BLOOD ORDERABLES F inal Result EXTERNAL NON-INTERFACED REF LAB * (ABNORMAL) Lipid panel (11/29/2020 8:02 AM EST) HDL 41 mg/dL [facility] Comment: Interpretation <40 mg/dL: Low HDL cholesterol (major risk factor for CHD) Greater than or equal to 60 mg/dL: High HDL cholesterol ( negative risk factor for CHD) HDL - cholesterol is affected by a number of factors, e.g. smoking, excerise, hormones, sex and age. CHOLESTEROL 226 0 - 240 mg/dL [facility] TRIGLYCERIDES 247(H) 30 - 160 mg/dL [facility] LDL 136(H) 50 - 129 mg/dL [facility] Comment: LDL levels in terms of risk for coronary heart disease: <100 mg/dL: Optimal 100-129 mg/dL: Near or above optimal 130-159 mg/dL: Borderline high 160-189 mg/dL: High >190 mg/dL: Very High CARDIAC RISK RATIO 5.5(H) 3.3 - 4.4 C [facility] Blood 11/29/2020 8:02 AM EST 11/29/2020 8:07 AM EST Kamryn Davis DRAFTER ENGINEERING LAB BLOOD ORDERABLES F inal Result Performing Organization Address City/[facility]/ZIP Co de Phone Number [address] [address] * Mammogram Outside (No Interpretation) (08/30/2015 12:00 AM EST) Narrative SYSTEMGENERATED, DOCUMENTATION - 12/24/2020 1:20 PM EDT This study is for PACS storage only and not for interpretation. Provider Not In System PhD IMG OUTSIDE IMAGING W /OUT INTERPRETATION Final Result from Last 3 Months or Most Recently Relevant to Health Maintenance Insurance MEDICARE PART A & B Member Subscriber Plan / Payer (Ef fective 2016-Present) Name:Amy Montgomery Member ID:[id number] Relation to Subscriber:Self Name:Amy Montgomery Subscriber ID:[id number] Payer ID:[id number] Group ID:Not on file Type:Medicare Address: [employer] [address] [place] [id number] [place] [address] MEDICARE REPLACEMENT MEDICARE PART A & B [facility] MEDICARE REPLACEMENT MEDICARE PART A & B MEDICARE REPLACEMENT MEDICARE PART A & B Member Subscriber Plan / Payer (Ef fective 2016-Present) Name:Amy Montgomery Member ID:[id number] Relation to Subscriber:Self Name:Amy Montgomery Subscriber ID:[id number] Payer ID:[id number] Group ID:Not on file Type:Medicare Address: [employer] [address] [place] [address] [place] [address] MEDICARE REPLACEMENT MEDICARE PART A & B [facility] MEDICARE REPLACEMENT MEDICARE PART A & B Member Subscriber Plan / Payer ( fective 2016-) Name:Amy Montgomery Member ID:[id number] Relation to Subscriber:Self Name:Amy Montgomery Subscriber ID:[id number] Payer ID:[id number] Group ID:Not on file Type:Medicare Address: [employer] [address] MEDICARE REPLACEMENT MEDICARE PART A & B [facility] MEDICARE REPLACEMENT MEDICARE PART A & B Member Subscriber Plan / Payer ( fective 2016-Present) Name:Amy Montgomery Member ID:[id number] Relation to Subscriber:Self Name:Amy Montgomery Subscriber ID:[id number] Payer ID:[id number] Group ID:Not on file Type:Medicare Address: [employer] [address] MEDICARE REPLACEMENT [address] [place] [address] MEDICARE PART A & B MEDICARE REPLACEMENT Care Teams Auto Parts Handler Relationship Specialty Start Date End Date Unknown, Unknown, PCP - General 11/23/23 Additional Source Comments The information contained in this document represents components of the legal health record. It is not the complete legal health record.[facility]
[2025-05-25 10:32] LABS: Hematocrit 42.5 % (37.0-47.0); Hemoglobin 14.2 g/dl (12.0-16.0); Mean Corpuscular HGB Conc 33.4 g/dl (31.0-35.0); Mean Corpuscular Hemoglobin 30.5 pg (27.0-33.0); Mean Corpuscular Volume 91.4 fL (80.0-98.0); NRBC Abs Auto 0.000 X10*3/uL (0.0-0.012); NRBC Pct Auto 0.0 /100WBC (0.0-0.2); Platelet Count 380 X10*3/uL (160-400); Red Blood Count 4.65 X10*6/uL (4.20-5.50); White Blood Count 9.5 X10*3/uL (4.8-10.8)
[2025-05-25 10:45] LABS: Appearance Urine Clear; Glucose Urine UA Negative (Negative); PH 6.5 (5.0-9.0); Specific Gravity - Urine 1.020 (1.005-1.025); UMIC TRIGGER UA YES
[2025-05-25 11:00] LABS: Alanine Aminotransferase 17 U/L (0-31); Albumin Level 4.1 g/dL (3.5-5.0); Alkaline Phosphatase 82 U/L (39-117); Anion Gap 14 (12-20); Aspartate Amino Transferase 22 U/L (5-31); Blood Urea Nitrogen 9 mg/dL (9-16); Calcium 9.2 mg/dL (8.4-10.2); Carbon Dioxide 25 mmol/L (22-29); Chloride 106 mmol/L (96-108); Cholesterol 177 mg/dL (<200); Estimated Glomerular Filt Rate > 60; HDL Cholesterol 40 mg/dL (>40); Potassium 4.2 mmol/L (3.3-5.1); Sodium 141 mmol/L (135-145); Total Protein 7.5 g/dL (6.5-8.0); Triglycerides 217 mg/dL (<150)
[2025-05-25 11:16] LABS: Thyroid Stimulating Hormone 1.11 uIU/mL (0.32-4.0)
== END 2025-05-25 09:09 | disposition home or self-care (01) ==
LOC: HO.LAB 09:08
PROVIDERS: PCP Internal Medicine; Visit Provider Internal Medicine
DX: E78.5 Hyperlipidemia, unspecified (principal)
CPT/HCPCS: 36415; 80048; 80061; 80076; 81001; 84443; 85027

== ENCOUNTER 2025-06-21 09:53 | Outpatient (AMB) | payer OTHER, SELFPAY ==
--- OUTSIDE RECORDS SUMMARY | 2010-12-25 | XMS_ITS | Encounter Summary ---
Author Organization [facility] Address [address] [facility] [address] [place] [phone] Phone Care Team Providers Care Walking Dragline Oiler Name Role Phone Unavailable Primary Care Provider Unavailabl e Encounter Details Date Type Department Care Team (Late st Contact Info) Description 12/25/2010 Hospital Encounter [facility],Outside Imaging [address] [place], [place] [phone] System, Provider Not In, [facility] [address] [address] Social History Tobacco Use Types Packs/Day Years [...] It is not the complete legal health record.[facility]
[2025-06-21 09:55] VITALS: BP 126/71; PULSE 109; BMI 28.3
--- NOTE | 2025-06-21 09:55 | MHC.OFFVIS ---
Vital Signs 06/21/25 09:55 Height 5 ft 3 in Weight 160 lb BMI 28.3 BP 126/71 Blood Pressure Location Rt brachial Position Sitting Pulse 109 H Intake Visit Reasons: Anogenital (venereal) warts Intake Note: This patient presents for Anogenital (venereal) warts. Pt c/o; no complaints. Retail Equipment Associate Required: No Accompanied by: Daughter Allergies duloxetine Allergy (Intermediate, Uncoded 06/21/25 10:04) mood swings fenofibrate Allergy (Intermediate, Uncoded 06/21/25 10:04) leg pain tizanidine Allergy (Intermediate, Uncoded 06/21/25 10:04) ineffective topiramate Allergy (Unknown, Uncoded 06/21/25 10:04) sob Medication List - Last Reconciled 06/21/25 by Ranulfo Wynne MD acetaminophen ER (Tylenol Arthritis Pain) 1,300 mg (2 x 650 mg) PO Q12H albuterol sulfate 90 mcg/actuation 1 inh inhalation QID PRN cholecalciferol (vitamin D3) 50 mcg PO DAILY citalopram 40 mg PO DAILY ouyyaimblhn-snsuafigs-jrluknht 200-62.5-25 mcg (Trelegy Ellipta) 1 inh inhalation DAILY gabapentin 400 mg PO BID 90 days ipratropium-albuterol 0.5 mg-3 mg(2.5 mg base)/3 mL 3 mL inhalation BID 30 days nystatin 1 appl topical DAILY 2 weeks omeprazole 20 mg PO DAILY Oxygen Home Use As directed [Portable Oxygen tank As directed- ] pravastatin 10 mg PO BEDTIME sulfamethoxazole-trimethoprim 800-160 mg (Bactrim DS) 1 tab PO BID 5 days tramadol 50 mg PO DAILY PRN HPI HPI Anogenital (venereal) warts: Details: 69-year-old female referred for a skin lesion in the perianal area. She says she has had this for 6 months and seems to be increasing in size. Says that this hurts when she is sitting down and she wants this removed. She denies any bleeding. She has other medical problems including COPD requiring O2 at home, frequent UTIs, chronic back pain and neuropathy. She continues to smoke everyday. [facility] Medical History (Updated 06/21/25 @ 10:17 by Ranulfo Wynne MD) Perianal lesion Lower thoracic back pain Nicotine dependence, cigarettes, uncomplicated Peripheral neuropathy Insomnia Chronic respiratory failure History of abnormal cervical Pap smear History of COVID-19 (~09/2021) Surgical History History of D&C History of bladder surgery History of hysterectomy History of cholecystectomy History of appendectomy Family History Sister Lung cancer Mother DM2 (diabetes mellitus, type 2) Father Alzheimer disease Other Mental health disorder Social History Housing: Other (mobile home) Alcohol intake: never Patient Tobacco Use Status: Current everyday Tobacco user Tobacco use type: Cigarette Cigarette Packs Per Day: 1 Cigarettes Per Day: 40 Years Smoked: (onset 13yo, 1-2ppd x 53yrs, 60+PYH) e-Cigarette/Vaping Use: Never Used Second Hand Smoke Exposure: Yes service: No Current occupational status: retired Cognitive needs: No Hearing needs: No Vision needs: Yes (glasses) Review of Systems Const Denies chills and Denies fever(s) Card Denies chest pain, Reports dyspnea and Reports dyspnea on exertion Resp Denies cough, Reports dyspnea and Reports dyspnea on exertion GI Denies hematochezia and Denies change in bowel habits Denies hematuria Musc Reports back pain, Reports arthralgias and Reports limited range of motion Neuro Denies focal weakness and Denies convulsions Psych Denies depression and Denies mood swings Physical Exam Vital Signs: Last Vital Signs Pulse 109 H 06/21/25 09:55 BP 126/71 06/21/25 09:55 BMI result Body Mass Index 28.3 Const General: comfortable and no acute distress Orientation/consciousness: patient oriented x3 Neck Neck: Yes no lymphadenopathy Resp Other: Follow breath sounds bilaterally Auscultation: clear to auscultation bilaterally Cardio Rhythm: regular rhythm GI Other: Rectal exam shows an elevated, polypoid lesion in the perianal area on the right side, about 1 cm in size, with a narrow base Palpation (GI): Soft to palpation, nontender and no guarding Neuro General: patient oriented x3 Assessment & Plan Assessment & Plan (1) Perianal lesion: Code(s): K62.9 - Disease of anus and rectum, unspecified Category: Medical Plan: This may be a condyloma or a fibro- lipoma. She wants this excised. I explained the technique of excision under local anesthesia. I reviewed the risks of bleeding, infections as well as the benefits and alternatives. I explained to her what to expect postoperatively. She wants to proceed. This will be done in the office on her next visit. Coding Level of Care Code New Pt Level 3 (15663) Diagnoses Perianal lesion K62.9
--- OUTSIDE RECORDS SUMMARY | 2025-06-21 11:03 | XMS_ITS | Clinical Summary ---
Author Organization [facility] [employer] Address [address] [place] [address] Care Team Providers Care Cat Scanner Operator Name Role Phone Pcp, No Primary Care Provider [phone] Social History Tobacco Use Types Packs/Day Years [...] Adults 18 yrs or above (or HM Modifier)([facility]) 1974 Hepatitis C Virus Infection in Adolescents and Adults: Screening (or Modifier) ([facility]) [address] [facility] Screening Reminder: Viri bales for all adults ([facility]) 1974 Tobacco Smoking Cessation: i n Adults excluding Women: Behavioral and Pharmacotherapy Interventions ([facility]) 1974 Colorectal Cancer Screening 45 -75 Yrs (or HM Modifier) 2001 Colorectal Cancer: FLEXIBLE SIGMOIDOSCOPY Screening every 5 yrs 2001 Colorectal Cancer: Fecal Imm unochemical Test (FIT) Annually [facility] 2001 Colorectal Cancer: High-sens itivity gFOBT Screening Annually [facility] 2001 Colorectal Cancer: Stool Col oguard Screening every 3 yrs 2001 Colorectal Cancer:CT Colonog sheba Screening every 5 yrs 2001 Breast Cancer: Screening Viri uallkadie age 50-74 yrs (or HM Modifier)([facility]) 2006 Pneumococcal Vaccination Scr eening: Patients 50+ yrs of age ([facility]) (1 of 1 - PCV) 2006 Zoster/Shingles Vaccine Seri es Screening: Adults aged 18+ yrs (or HM Modifiers)([facility]) (2 of 2) 04/18/2021 02/21/2021 Osteoporosis Screening to Pr event Fractures: Women aged 65 years+ ([facility]) 2021 DTaP/Tdap/Td Vaccines ([facility]) (2 - Td or Tdap) 03/07/2022 03/07/2012 Flu Vaccination: Ages 65+: Y early High Dose Recommended (or Modifier)([facility]) 04/20/2025 COVID-19 Vaccine Screening: Initial Series and Booster Status ([facility]) ( - 2024- season) 2025 12/21/2020, 11/30/2020 RSV Vaccines (1 - 1-dose 75+ series) 2031 Medical Devices Not on file Insurance MEDICARE Care Teams Cat Scanner Operator Relationship Specialty Start Date End Date Pcp, Deanna PCP - General Family Medicine 12/23/20
--- OUTSIDE RECORDS SUMMARY | 2025-06-21 11:03 | XMS_ITS | Encounter Summary ---
Author Organization [facility] Address [address] [place] [address] Phone Care Team Providers Care Quantitative Strategy Analyst Name Role Phone NandoaleidaKamryn CERTIFIED CODING SPECIALIST Primary Care Provider Jessica Welsh TOOL AND DIE MACHINIST Primary Care Provider [phone] Unknown, Unknown Primary Care Provider Vashti freeman Encounter Details Date Type Department Care Team (Late st Contact Info) Description 12/24/2020 Ancillary Orders [facility],Outside Imaging [address] [place] [address] System, Provider Not In, [place] [address] Social History Tobacco Use Types Packs/Day Years [...] documented as of this encounter Care Teams Quantitative Strategy Analyst Relationship Specialty Start Date End Date Kamryn Davis CNP PCP - General Internal Medicine 11/21/20 08/01/23 Jessica Welsh NP PCP - General Family Medicine 08/02/23 11/22/23 Unknown, Unknown, PCP - General 11/23/23 documented as of this encounter Additional Source Comments The information contained in this document represents components of the legal health record. It is not the complete legal health record.[facility]
--- OUTSIDE RECORDS SUMMARY | 2025-06-21 11:04 | XMS_ITS | Clinical Summary ---
Author Organization [facility] Address [address] [place] [address] Phone Care Team Providers Care Warehouse Material Handler Name Role Phone Unknown, Unknown Primary [...] 7:10 AM EDT) Blood us Kamryn Davis PLASTIC TILE LAYER LAB BLOOD ORDERABLES F inal Result EXTERNAL NON-INTERFACED REF LAB * (ABNORMAL) Lipid panel (11/29/2020 8:02 AM EST) HDL 41 mg/dL [facility] Comment: Interpretation <40 mg/dL: Low HDL cholesterol (major risk factor for CHD) Greater than or equal to 60 mg/dL: High HDL cholesterol ( negative risk factor for CHD) HDL - cholesterol is affected by a number of factors, e.g. smoking, excerise, hormones, sex and age. CHOLESTEROL 226 0 - 240 mg/dL [facility] TRIGLYCERIDES 247(H) 30 - 160 mg/dL [facility] LDL 136(H) 50 - 129 mg/dL [facility] Comment: LDL levels in terms of risk for coronary heart disease: <100 mg/dL: Optimal 100-129 mg/dL: Near or above optimal 130-159 mg/dL: Borderline high 160-189 mg/dL: High >190 mg/dL: Very High CARDIAC RISK RATIO 5.5(H) 3.3 - 4.4 C [facility] Blood 11/29/2020 8:02 AM EST 11/29/2020 8:07 AM EST Kamryn Davis PLASTIC TILE LAYER LAB BLOOD ORDERABLES F inal Result Performing Organization Address City/[facility]/ZIP Co de Phone Number [address] [address] * Mammogram Outside (No Interpretation) (08/30/2015 12:00 [...] Payer (Ef fective 2016-Present) Name:Amy Montgomery Member ID:[id number] Relation to Subscriber:Self Name:Amy Montgomery Subscriber ID:[id number] Payer ID:[id number] Group ID:Not on file Type:Medicare Address: [employer] [address] [place] [address] [place] [address] MEDICARE REPLACEMENT MEDICARE PART A & B [facility] MEDICARE REPLACEMENT MEDICARE PART A & B MEDICARE REPLACEMENT MEDICARE PART A & B Member Subscriber Plan / Payer (Ef fective 2016-Present) Name:Amy Montgomery Member ID:[id number] Relation to Subscriber:Self Name:Amy Montgomery Subscriber ID:[id number] Payer ID:[id number] Group ID:Not on file Type:Medicare Address: [employer] [address] [place] [address] [place] [address] MEDICARE REPLACEMENT MEDICARE PART A & B [facility] MEDICARE REPLACEMENT MEDICARE PART A & B Member Subscriber Plan / Payer ( fective 2016-) Name:Amy Montgomery Member ID:[id number] Relation to Subscriber:Self Name:Amy Montgomery Subscriber ID:[id number] Payer ID:[id number] Group ID:Not on file Type:Medicare Address: [employer] [address] MEDICARE REPLACEMENT MEDICARE PART A & B [facility] MEDICARE REPLACEMENT MEDICARE PART A & B Member Subscriber Plan / Payer ( fective 2016-Present) Name:Amy Montgomery Member ID:[id number] Relation to Subscriber:Self Name:Amy Montgomery Subscriber ID:[id number] Payer ID:[id number] Group ID:Not on file Type:Medicare Address: [employer] [address] MEDICARE REPLACEMENT [address] [place] [address] MEDICARE PART A & B MEDICARE REPLACEMENT Care Teams Warehouse Material Handler Relationship Specialty Start Date End Date Unknown, Unknown, PCP - General 11/23/23 Additional Source Comments The information contained in this document represents components of the legal health record. It is not the complete legal health record.[facility]
== END 2025-06-21 10:22 | disposition home or self-care (01) ==
LOC: HO.HGS 09:54
PROVIDERS: PCP Internal Medicine; Visit Provider Surgery
DX: K62.9 Disease of anus and rectum, unspecified (principal)
CPT/HCPCS: 99203

== ENCOUNTER 2025-06-21 09:53 | Outpatient (REF) | payer MEDICARE, SELFPAY ==
[2025-06-21 13:29] LABS: Appearance Urine Clear; Glucose Urine UA Negative (Negative); PH 6.5 (5.0-9.0); Specific Gravity - Urine 1.010 (1.005-1.025); UMIC TRIGGER UA YES
[2025-06-21 13:30] LABS: Appearance Urine Clear; Glucose Urine UA Negative (Negative); PH 6.5 (5.0-9.0); Specific Gravity - Urine 1.010 (1.005-1.025); UMIC TRIGGER UA YES
== END 2025-06-21 09:54 | disposition home or self-care (01) ==
LOC: HO.LAB 09:53
PROVIDERS: Physician Assistant Medical; Absent Provider Internal Medicine; PCP Internal Medicine; Visit Provider Surgery
DX: K62.9 Disease of anus and rectum, unspecified (principal); E78.5 Hyperlipidemia, unspecified; F32.A Depression, unspecified; M54.6 Pain in thoracic spine; R39.9 Unspecified symptoms and signs involving the genitourinary system; Z79.899 Other long term (current) drug therapy
CPT/HCPCS: 81001; 81003; 87086

== ENCOUNTER 2025-07-12 11:41 | Outpatient (REF) | payer OTHER, SELFPAY ==
--- OUTSIDE RECORDS SUMMARY | 2010-12-25 | XMS_ITS | Encounter Summary ---
Author Organization [facility] Address [address] [facility] [address] [place] [phone] Phone Care Team Providers Care Player Manager Name Role Phone Unavailable Primary Care Provider Unavailabl e Encounter Details Date Type Department Care Team (Late st Contact Info) Description 12/25/2010 Hospital Encounter [facility],Outside Imaging [address] [place], [place] [phone] System, Provider Not In, [facility] [address] [address] Social History Tobacco Use Types Packs/Day Years [...] It is not the complete legal health record.[facility]
--- OUTSIDE RECORDS SUMMARY | 2025-07-12 14:55 | XMS_ITS | Clinical Summary ---
Author Organization [facility] Address [address] [place] [address] Phone Care Team Providers Care Gold Marker Name Role Phone Unknown, Unknown Primary Care [...] COLONOSCOPY 2001 RSV VACCINE (1 - Risk 50-74 years 1-dose series) 2006 MAMMOGRAM 08/30/2017 08/30/2015, 12/25/2010 PNEUMOCOCCAL VACCINES (50+ [...] 7:10 AM EDT) Blood us Kamryn Davis CORPORATE FINANCIAL ANALYST LAB BLOOD ORDERABLES F inal Result EXTERNAL NON-INTERFACED REF LAB * (ABNORMAL) Lipid panel (11/29/2020 8:02 AM EST) HDL 41 mg/dL [facility] Comment: Interpretation <40 mg/dL: Low HDL cholesterol (major risk factor for CHD) Greater than or equal to 60 mg/dL: High HDL cholesterol ( negative risk factor for CHD) HDL - cholesterol is affected by a number of factors, e.g. smoking, excerise, hormones, sex and age. CHOLESTEROL 226 0 - 240 mg/dL [facility] TRIGLYCERIDES 247(H) 30 - 160 mg/dL [facility] LDL 136(H) 50 - 129 mg/dL [facility] Comment: LDL levels in terms of risk for coronary heart disease: <100 mg/dL: Optimal 100-129 mg/dL: Near or above optimal 130-159 mg/dL: Borderline high 160-189 mg/dL: High >190 mg/dL: Very High CARDIAC RISK RATIO 5.5(H) 3.3 - 4.4 C [facility] Blood 11/29/2020 8:02 AM EST 11/29/2020 8:07 AM EST Kamryn Davis CORPORATE FINANCIAL ANALYST LAB BLOOD ORDERABLES F inal Result Performing Organization Address City/[facility]/ZIP Co de Phone Number [address] [address] * Mammogram Outside (No Interpretation) (08/30/2015 12:00 [...] Payer (Ef fective 2016-Present) Name:Amy Montgomery Member ID:[id number] Relation to Subscriber:Self Name:Amy Montgomery Subscriber ID:[id number] Payer ID:[id number] Group ID:Not on file Type:Medicare Address: [employer] [address] [place] [id number] [place] [address] MEDICARE REPLACEMENT MEDICARE PART A & B [facility] MEDICARE REPLACEMENT MEDICARE PART A & B MEDICARE REPLACEMENT MEDICARE PART A & B Member Subscriber Plan / Payer (Ef fective 2016-Present) Name:Amy Montgomery Member ID:[id number] Relation to Subscriber:Self Name:Amy Montgomery Subscriber ID:[id number] Payer ID:[id number] Group ID:Not on file Type:Medicare Address: [employer] [address] [place] [address] [place] [address] MEDICARE REPLACEMENT MEDICARE PART A & B [facility] MEDICARE REPLACEMENT MEDICARE PART A & B Member Subscriber Plan / Payer ( fective 2016-) Name:Amy Montgomery Member ID:[id number] Relation to Subscriber:Self Name:Amy Montgomery Subscriber ID:[id number] Payer ID:[id number] Group ID:Not on file Type:Medicare Address: [employer] [address] MEDICARE REPLACEMENT MEDICARE PART A & B [facility] MEDICARE REPLACEMENT MEDICARE PART A & B Member Subscriber Plan / Payer ( fective 2016-Present) Name:Amy Montgomery Member ID:[id number] Relation to Subscriber:Self Name:Amy Montgomery Subscriber ID:[id number] Payer ID:[id number] Group ID:Not on file Type:Medicare Address: [facility] [facility] [address] MEDICARE REPLACEMENT [address] [place] [address] MEDICARE PART A & B MEDICARE REPLACEMENT Care Teams Gold Marker Relationship Specialty Start Date End Date Unknown, Unknown, PCP - General 11/23/23 Additional Source Comments The information contained in this document represents components of the legal health record. It is not the complete legal health record.[facility]
--- OUTSIDE RECORDS SUMMARY | 2025-07-12 14:55 | XMS_ITS | Encounter Summary ---
Author Organization [facility] Address [address] [place] [address] Phone Care Team Providers Care Outside Sales Advertising Executive Name Role Phone NandoaleidaKamryn ORAL AND MAXILLOFACIAL SURGEON Primary Care Provider Jessica Welsh BLOWER FEEDER DYED RAW STOCK Primary Care Provider [phone] Unknown, Unknown Primary Care Provider Vashti freeman Encounter Details Date Type Department Care Team (Late st Contact Info) Description 12/24/2020 Ancillary Orders [facility],Outside Imaging [address] [place] [address] System, Provider Not In, [place] [address] Social History Tobacco Use Types Packs/Day Years [...] documented as of this encounter Care Teams Outside Sales Advertising Executive Relationship Specialty Start Date End Date Kamryn Davis CNP [address] [place] [address] PCP - General Internal Medicine 11/21/20 08/01/23 Jessica Welsh NP [address] [place] [address] PCP - General Family Medicine 08/02/23 11/22/23 Unknown, Unknown, PCP - General 11/23/23 documented as of this encounter Additional Source Comments The information contained in this document represents components of the legal health record. It is not the complete legal health record.[facility]
== END 2025-07-12 11:42 | disposition home or self-care (01) ==
LOC: HO.MAMMO 11:41
PROVIDERS: PCP Internal Medicine; Visit Provider Internal Medicine
DX: Z12.31 Encounter for screening mammogram for malignant neoplasm of breast (principal)
CPT/HCPCS: 77063; 77067

== ENCOUNTER → 2025-07-12 12:00 | Outpatient (BNV) | payer OTHER, SELFPAY | PROVIDERS: PCP Internal Medicine; Visit Provider Radiology Body Imaging | DX: Z12.31 Encounter for screening mammogram for malignant neoplasm of breast (principal) | CPT/HCPCS: 77063; 77067 ==

== ENCOUNTER 2025-07-19 10:24 | Outpatient (REF) | payer OTHER, SELFPAY ==
[2025-07-19 11:21] LABS: MANUAL DIFF FLAG NO
[2025-07-19 12:08] LABS: Hematocrit 43.1 % (37.0-47.0); Hemoglobin 14.2 g/dl (12.0-16.0); Imm Gran Abs Auto 0.05 X10*3/uL (0.00-0.03); Imm Gran Pct Auto 0.6 % (0.0-0.4); Lymphocytes Absolute Auto 2.2 X10*3/uL (1.2-4.9); Mean Corpuscular HGB Conc 32.9 g/dl (31.0-35.0); Mean Corpuscular Hemoglobin 30.6 pg (27.0-33.0); Mean Corpuscular Volume 92.9 fL (80.0-98.0); NRBC Abs Auto 0.000 X10*3/uL (0.0-0.012); NRBC Pct Auto 0.0 /100WBC (0.0-0.2); Platelet Count 359 X10*3/uL (160-400); Red Blood Count 4.64 X10*6/uL (4.20-5.50); White Blood Count 8.8 X10*3/uL (4.8-10.8)
[2025-07-19 12:33] LABS: Alanine Aminotransferase 17 U/L (0-31); Albumin Level 4.1 g/dL (3.5-5.0); Alkaline Phosphatase 73 U/L (39-117); Anion Gap 11 (12-20); Aspartate Amino Transferase 19 U/L (5-31); Blood Urea Nitrogen 9 mg/dL (9-16); Calcium 9.6 mg/dL (8.4-10.2); Carbon Dioxide 29 mmol/L (22-29); Chloride 104 mmol/L (96-108); Estimated Glomerular Filt Rate > 60; Potassium 4.4 mmol/L (3.3-5.1); Sodium 140 mmol/L (135-145); Total Protein 7.4 g/dL (6.5-8.0)
== END 2025-07-19 10:25 | disposition home or self-care (01) ==
LOC: HO.LAB 10:24
PROVIDERS: PCP Internal Medicine; Visit Provider Hospitalist
DX: J44.1 Chronic obstructive pulmonary disease with (acute) exacerbation (principal); J96.11 Chronic respiratory failure with hypoxia; F17.210 Nicotine dependence, cigarettes, uncomplicated; Z01.84 Encounter for antibody response examination; Z71.6 Tobacco abuse counseling
CPT/HCPCS: 36415; 80048; 80076; 82784; 82785; 85025; 85652; 94618

== ENCOUNTER 2025-07-19 10:24 | Outpatient (AMB) | payer OTHER, SELFPAY ==
--- OUTSIDE RECORDS SUMMARY | 2010-12-25 | XMS_ITS | Encounter Summary ---
Author Organization [facility] Address [address] [facility] [address] [place] [phone] Phone Care Team Providers Care Hand Reamer Name Role Phone Unavailable Primary Care Provider Unavailabl e Encounter Details Date Type Department Care Team (Late st Contact Info) Description 12/25/2010 Hospital Encounter [facility],Outside Imaging [address] [place], [place] [phone] System, Provider Not In, [facility] [address] [address] Social History Tobacco Use Types Packs/Day Years Used Date Smoking Tobacco: Some Days Cigarettes 0.8 50 Smokeless Tobacco: Never Comments:10 cigarettes daily if that Alcohol Use Standard Drinks/Week Comments Not Currently 0 (1 standard drink = 0.6 oz pur e alcohol) none since summer Child or Family Care Answer Date Record ed Do you have problems with on e of the following making it difficult for you to work, study, or receive health care? Yes 02/21/2021 Education Answer Date Recorded Are you interested in more education? Not on osmar e 03/03/2023 Are you concerned about learning? Not on file 03/03/2023 No 03/03/2023 No 03/03/2023 Food Answer Date Recorded Within the past 6 months we worried whether our food would run out before we got money to buy more. Often True 02/21/2021 Within the past 6 months the food we bought just didn't last and we didn't have enough money to get more. Never True Residential Stability Answer Date Recor ded What is your housing situation today? I have colby sing 02/21/2021 How many times have you move d in the past 12 months? Zero (I did not move) 02/21/2021 06 Are you worried that in t he next 2 months, you may not have your own housing to live in? No 02/21/2021 Paying for Meds Answer Date Recorded Do you have trouble paying for medicines? Yes 02/21/2021 Paying Utility Bills Answer Date Record ed Do you have trouble paying your heating or elect ricity bill? No 02/21/2021 Transportation Answer Date Recorded Has the lack of transportati on kept you from medical appointments or from getting medications? No 02/21/2021 Unemployment Answer Date Recorded Are you currently unemployed or working on a part-time or temporary basis, and looking for work? Yes 02/21/2021 Digital Access Answer Date Recorded No 02/13/2023 No 02/13/2023 No 02/13/2023 Reliable internet access at home? Not on file 02/13/2023 Device with a working camera? Not on file Comments Unknown Sex and Gender Information Value Date Recorded Sex Assigned at Not on file Legal Sex Female 12:22 PM EST Gender Identity Not on file Sexual Orientation Not on file documented as of this encounter Plan of Treatment Not on file documented as of this encounter Procedures Procedure Name Priority Date/Time Associated Diagnosis Comments BI MAMMOGRAM OUTSIDE (NO INTERPRETATION) Routine 12/25/2010 12:00 AM EDT documented in this encounter Results * Mammogram Outside (No Interpretation) (12/25/2010 12:00 AM EDT) Narrative SYSTEMGENERATED, DOCUMENTATION - 12/24/2020 1:20 PM EDT This study is for PACS storage only and not for interpretation. us Provider Not In System [facility] OUTSIDE IMAGING W /OUT INTERPRETATION Final Result documented in this encounter Visit Diagnoses Not on filedocumented in this encounter Additional Health Concerns Infection Onset Date Last Indicated Resolved Time CoV-Risk Comment:Per Ambulatory Triage Form 10/01/2021 10/01/202110/01 10:22 AM EST CoV-Presumed 10/01/2021 10/01/2021 10/22/2021 1:21 AM EST documented as of this encounter Additional Source Comments The information contained in this document represents components of the legal health record. It is not the complete legal health record.[facility]
[2025-07-19 10:30] VITALS: BP 120/70; PULSE 95; O2SAT 93; BMI 28.3
--- NOTE | 2025-07-19 10:30 | MHC.OFFVIS ---
Vital Signs 07/19/25 10:30 Height 5 ft 3 in Weight 159 lb 13.362 oz BMI 28.3 BP 120/70 Blood Pressure Location Lt brachial Position Sitting Pulse 95 Pulse Source Pulse Oximeter Pulse Oximetry (%) 93 Oxygen Delivery Method Room Air Intake Visit Reasons: COPD Pattern Clerk Required: No Accompanied by: Daughter Allergies duloxetine Allergy (Intermediate, Uncoded 06/21/25 10:04) mood swings fenofibrate Allergy (Intermediate, Uncoded 06/21/25 10:04) leg pain tizanidine Allergy (Intermediate, Uncoded 06/21/25 10:04) ineffective topiramate Allergy (Unknown, Uncoded 06/21/25 10:04) sob HPI Comments Details: The patient is a 69-year-old woman with a known history of tobacco dependency and COPD who apparently has been complaining of worsening shortness of breath. She did develop significant COVID in the beginning of the year and she was hospitalized for about 4 days. There she did require oxygen. She subsequently left the hospital and she continued to struggle at home. After several weeks she started feeling little better. Then she followed up with [facility] pulmonary. Her medications were adjusted and she did feel a lot better. Unfortunate she continued to smoke cigarettes. She also continues to have shortness of breath. Also productive cough with yellow sputum. Moderate severity. Due to insurance issues she could not go back to [facility]. Therefore, she was referred to the [facility] pulmonology office. Today is the 1st time that we me. The patient states that she has been struggling with smoking. She has been able to cut down significantly down to 1 pack. Now she is rolling her own cigarettes. Her also smokes. During the office visit she was noted to be significantly wheezy. She also has rhonchi due to her chest congestion. We did go for 6 minutes walk testing the patient did quickly desaturated down to 87%. The patient does need oxygen supplementation based on her 6 minute walk test. Will start her on a conserving device. We did review her imaging studies including chest x-ray when she had COVID and also reviewed in previous CT scan of the abdomen demonstrating relatively normal lung windows just some atelectasis from back 2020. the patient also had a hiatal hernia. The patient has not had any pulmonary function studies. She was also referred to the lung cancer screening program at [facility] but she could not attend. Therefore I will set her up with a program at [place]. Patient also needs a nebulizer. Will also request 1 from the [employer]. 04/10/2022 the patient is here for pulmonary follow-up visit. She is scheduled to undergo colonoscopy. Therefore she has been evaluated for preop. Overall she is doing better on the Trelegy inhaler. She is also trying to cut down on the smoking. The oxygen also has been helpful for her. However, difficult to carry the tanks because there continues flow and heavy. She also has not been getting enough tanks from the [employer]. We did initially request a conserving device with the 2 L pulse. Therefore we did take her again for 6 minute walk test we did confirm again that she is able to do well on a conserving device. I would have her increase to 3 L pulse with activity to maintain a pulse ox Above 89%. In the meantime she also underwent a CT scan through the lung cancer screening program. We did personally reviewed. The patient had extensive emphysema in addition to underlying pulmonary nodules bilaterally. She also appears to have been his aided mucus plug in the right middle lobe. The final read on the CT scan is not available as of yet. Her pulmonary function studies again confirmed the fact that she has COPD and emphysema. As far as from a respiratory status she is medically optimized at this time. She is able to proceed with a colonoscopy with anesthesia. The patient does have increased risk for perioperative pulmonary complications including: Atelectasis, hypoxia, prolonged mechanical ventilation and pneumonia. 09/10/2022 the patient is here for a pulmonary follow-up visit. The patient overall is doing well. She continues use her respiratory medications as prescribed. She also continues with her oxygen. This has been affecting beneficial. She still complains of shortness of breath with activity. Mnaz-cz-onrdfixy severity. She did not have her colonoscopy. It was rescheduled. At this point she does not have another date in mind. She is having increasing cough as well. Some chest congestion. Appears to have a component of bronchitis. The mucus is colored yellowish in color and therefore likely to be related to a low or respiratory bacterial infection. 07/19/2025 the patient is here for a follow-up visit. The patient has not been seen since 2021. She has been lost to follow-up. In partially some months and then she did not have any family around. The patient unfortunately increase her smoking. She is smoking about 2 packs a day. Her daughter is now living with her it is going to help her quit altogether. Her respiratory status has been getting worse. She is more short of breath. She has a hard time with the oxygen tanks for portability. Therefore she does not use it. She also feels like a concentrator at home for nighttime he is not working well as making lot of noise and needs to be assessed. The patient also has been using the Trelegy inhaler. She is using her nebulizer. She has a significant amount of shortness of breath and wheezing. And the patient also has a very productive cough. We did go for a walking oximetry the patient did desaturate down to about 86% and it did take her some time to come up after she started the oxygen. She was placed on a portable oxygen concentrator 2 L pulse slowly but surely she was able to get to 90% and then we ambulated and she was able to maintain a pulse ox of 93% with activity. Will request a POC for better portability outside of the home from her [employer] company, [employer]. They also hopefully can assess her home concentrator. She is going to continue to use a nebulizer. The patient does have nicotine patches at home and also will send the Nicotrol nasal spray that she is going to start using since she is going to quit on Wednesday. The patient is last CT scan was back in 2022 through the lung cancer screening program. Will go ahead and have her active again with the program. She will follow-up in 3 months if she has any issues prior to that she can always call for an earlier assessment or recommendations. [facility] Medical History (Updated 07/19/25 @ 12:42 by Leo Hinton MD) Perianal lesion Lower thoracic back pain Nicotine dependence, cigarettes, uncomplicated Peripheral neuropathy Insomnia Chronic respiratory failure History of abnormal cervical Pap smear History of COVID-19 (~09/2021) Surgical History History of D&C History of bladder surgery History of hysterectomy History of cholecystectomy History of appendectomy Family History Sister Lung cancer Mother DM2 (diabetes mellitus, type 2) Father Alzheimer disease Other Mental health disorder Social History Housing: Other (mobile home) Alcohol intake: never Patient Tobacco Use Status: Current everyday Tobacco user Tobacco use type: Cigarette Cigarette Packs Per Day: 1 Cigarettes Per Day: 40 Years Smoked: (onset 13yo, 1-2ppd x 53yrs, 60+PYH) e-Cigarette/Vaping Use: Never Used Second Hand Smoke Exposure: Yes service: No Current occupational status: retired Cognitive needs: No Hearing needs: No Vision needs: Yes (glasses) Review of Systems Const Denies fatigue Eyes Denies change in vision ENT Reports nasal congestion Card Denies chest pain and Reports dyspnea on exertion Resp Reports chest congestion, Reports cough, Reports dyspnea on exertion and Reports wheezing GI Reports heartburn Musc Reports no additional complaints Skin/Breast Denies rash Neuro Reports no additional complaints Endo Denies fatigue Aller/Immun Reports wheezing Physical Exam Vital Signs: Last Vital Signs Pulse 95 07/19/25 10:30 BP 120/70 07/19/25 10:30 Pulse Ox 93 07/19/25 10:30 Oxygen Delivery Method Room Air 07/19/25 10:30 BMI result Body Mass Index 28.3 Const General: comfortable and no acute distress Orientation/consciousness: patient oriented x3 HEENT Head: Yes normal to inspection Eyes General: appearance normal, both eyes and all related structures Neck Neck: Yes normal visual inspection Thyroid: Thyroid normal Chest Chest palpation & inspection: normal inspection of the chest Breast/axilla inspection: normal inspection of the breasts Breast/axilla palpation: normal palpation of the breasts Resp Effort & Inspection: normal respiratory effort and prolonged expiratory phase Auscultation: rhonchi, wheezes and diminished lung sounds Cardio Rate: regular rate Rhythm: regular rhythm Heart sounds: S1 normal heart sound present and S2 normal heart sound present GI Inspection: Yes normal to inspection Palpation (GI): Soft to palpation Rectal Exam - Female: deferred Skin General skin exam: no rashes or lesions noted Rashes: no rashes Neuro General: patient oriented x3 Cognition (Neuro): normal cognition Extrem General: Yes cyanosis and Yes edema Psych Attitude: cooperative Thought process: Normal thought process present Thought content: Normal thought content present Office Procedures 6 Minute Walk Time:: 12:09 SPO2 % at rest: 94 Pulse at rest: 90 SPO2 % during excercise: 86 Pulse during excercise: 120 Distance in yards walked: 100 Leonel Score: 7 Supplemental Oxygen: The patient desaturated on room air with activity to 86%. She was also tachycardic. She was placed on 3 L pulse and she was able to walk with a pulse ox of 93% with activity slowly. [id number] - 6 Minute Walk Assessment & Plan Assessment & Plan (1) COPD (chronic obstructive pulmonary disease): Code(s): J44.9 - Chronic obstructive pulmonary disease, unspecified Category: Medical Qualifiers: COPD type: COPD with acute exacerbation Qualified Code(s): J44.1 - Chronic obstructive pulmonary disease with (acute) exacerbation (2) Current smoker: Comment: (onset 13yo, 1-2ppd x 53yrs, 60+PYH) Code(s): F17.200 - Nicotine dependence, unspecified, uncomplicated Category: Social Hx (3) Chronic respiratory failure: Code(s): J96.10 - Chronic respiratory failure, unspecified whether with hypoxia or hypercapnia Category: Medical Qualifiers: Respiratory failure complication: hypoxia Qualified Code(s): J96.11 - Chronic respiratory failure with hypoxia Plan continue Trelegy 200 short-acting beta agonist as needed contineu DuoNeb twice a day via nebulizer revision: conitnue POC 3 L pulse with activity for better portability and 3L while sleeping tobacco cessation. Quit date 07/23 nicotine patch and nasal spray Lung cancer screening program Bloodwork start doxyxycline x 14 days start Prednisone taper Bloodwork ? Nucala versus Daliresp/Ohtuvayre follow-up in 2-3 months Orders: Orders Complete Blood Count Auto Diff Today J44.9 - Chronic obstructive pulmonary disease, unspecified Basic Metabolic Panel Today J44.9 - Chronic obstructive pulmonary disease, unspecified Immunoglobulin E Today J44.9 - Chronic obstructive pulmonary disease, unspecified Erythrocyte Sedimentation Rate Today J44.9 - Chronic obstructive pulmonary disease, unspecified Liver Panel Today J44.9 - Chronic obstructive pulmonary disease, unspecified Immunoglobulins,IgG IgA IgM Today J44.9 - Chronic obstructive pulmonary disease, unspecified Medications: New nicotine administer into each nostril 1 spray intranasal QID 40 mL 6RF 30 days prednisone PO daily; Take 2 tabs daily x 5 days, then 1 tablet daily x 5 days 15 tabs 0RF 10 days doxycycline monohydrate 100 mg PO BID 28 tabs 0RF 14 days Refilled ikdgamlpryw-eaqzjxnpr-gkevpwco 200-62.5-25 mcg (Trelegy Ellipta) 1 inh inhalation DAILY 60 ea 2RF ipratropium-albuterol 0.5 mg-3 mg(2.5 mg base)/3 mL 3 mL inhalation BID 180 mL 11RF 30 days J44.9 - Chronic obstructive pulmonary disease, unspecified Coding Level of Care Code Est Pt Level 5 (36679) Diagnoses Chronic obstructive pulmonary disease with acute exacerbation J44.1 COPD type: COPD with acute exacerbation Current smoker F17.200 Chronic respiratory failure with hypoxia J96.11 Respiratory failure complication: hypoxia CPT Codes Coding ([id number]) Time Spent (min) 45
[2025-07-19 12:10] VITALS: PULSE 90; O2SAT 94
--- OUTSIDE RECORDS SUMMARY | 2025-07-19 12:35 | XMS_ITS | Encounter Summary ---
Author Organization [facility] Address [address] [place] [id number] Phone Care Team Providers Care Sand Buffer Name Role Phone NandoaleidaKamryn PLASTERER FOREMAN Primary Care Provider Jessica Welsh [employer] CONSULTANT Primary Care Provider [phone] Unknown, Unknown Primary Care Provider Vashti freeman Encounter Details Date Type Department Care Team (Late st Contact Info) Description 12/24/2020 Ancillary Orders [facility],Outside Imaging [address] [place] [address] System, Provider Not In, [place] [address] Social History Tobacco Use Types Packs/Day Years [...] documented as of this encounter Care Teams Sand Buffer Relationship Specialty Start Date End Date Kamryn Davis CNP [address] [place] [address] PCP - General Internal Medicine 11/21/20 08/01/23 Jessica Welsh NP [address] [place] [address] PCP - General Family Medicine 08/02/23 11/22/23 Unknown, Unknown, PCP - General 11/23/23 documented as of this encounter Additional Source Comments The information contained in this document represents components of the legal health record. It is not the complete legal health record.[facility]
--- OUTSIDE RECORDS SUMMARY | 2025-07-19 12:35 | XMS_ITS | Clinical Summary ---
Author Organization [facility] Address [address] [place] [address] Phone Care Team Providers Care Senior Quality Methods Specialist Name Role Phone Unknown, Unknown Primary Care [...] 7:10 AM EDT) Blood us Kamryn Davis ACADEMIC INTERN LAB BLOOD ORDERABLES F inal Result EXTERNAL NON-INTERFACED REF LAB * (ABNORMAL) Lipid panel (11/29/2020 8:02 AM EST) HDL 41 mg/dL [facility] Comment: Interpretation <40 mg/dL: Low HDL cholesterol (major risk factor for CHD) Greater than or equal to 60 mg/dL: High HDL cholesterol ( negative risk factor for CHD) HDL - cholesterol is affected by a number of factors, e.g. smoking, excerise, hormones, sex and age. CHOLESTEROL 226 0 - 240 mg/dL [facility] TRIGLYCERIDES 247(H) 30 - 160 mg/dL [facility] LDL 136(H) 50 - 129 mg/dL [facility] Comment: LDL levels in terms of risk for coronary heart disease: <100 mg/dL: Optimal 100-129 mg/dL: Near or above optimal 130-159 mg/dL: Borderline high 160-189 mg/dL: High >190 mg/dL: Very High CARDIAC RISK RATIO 5.5(H) 3.3 - 4.4 C [facility] Blood 11/29/2020 8:02 AM EST 11/29/2020 8:07 AM EST Kamryn Davis ACADEMIC INTERN LAB BLOOD ORDERABLES F inal Result Performing Organization Address City/[facility]/ZIP Co de Phone Number [address] [address] * Mammogram Outside (No Interpretation) (08/30/2015 12:00 [...] Payer (Ef fective 2016-Present) Name:Amy Montgomery Member ID:[id number] Relation to Subscriber:Self Name:Amy Montgomery Subscriber ID:[id number] Payer ID:[id number] Group ID:Not on file Type:Medicare Address: [employer] [address] [place] [id number] [place] [address] MEDICARE REPLACEMENT MEDICARE PART A & B [facility] MEDICARE REPLACEMENT MEDICARE PART A & B MEDICARE REPLACEMENT MEDICARE PART A & B Member Subscriber Plan / Payer (Ef fective 2016-Present) Name:Amy Montgomery Member ID:[id number] Relation to Subscriber:Self Name:Amy Montgomery Subscriber ID:[id number] Payer ID:[id number] Group ID:Not on file Type:Medicare Address: [employer] [address] [place] [address] [place] [address] MEDICARE REPLACEMENT MEDICARE PART A & B [facility] MEDICARE REPLACEMENT MEDICARE PART A & B Member Subscriber Plan / Payer ( fective 2016-) Name:Amy Montgomery Member ID:[id number] Relation to Subscriber:Self Name:Amy Montgomery Subscriber ID:[id number] Payer ID:[id number] Group ID:Not on file Type:Medicare Address: [employer] [address] MEDICARE REPLACEMENT MEDICARE PART A & B [facility] MEDICARE REPLACEMENT MEDICARE PART A & B Member Subscriber Plan / Payer ( fective 2016-Present) Name:Amy Montgomery Member ID:[id number] Relation to Subscriber:Self Name:Amy Montgomery Subscriber ID:[id number] Payer ID:[id number] Group ID:Not on file Type:Medicare Address: [employer] [address] MEDICARE REPLACEMENT [address] [place] [address] MEDICARE PART A & B MEDICARE REPLACEMENT Care Teams Senior Quality Methods Specialist Relationship Specialty Start Date End Date Unknown, Unknown, PCP - General 11/23/23 Additional Source Comments The information contained in this document represents components of the legal health record. It is not the complete legal health record.[facility]
--- OUTSIDE RECORDS SUMMARY | 2025-07-19 12:35 | XMS_ITS | Clinical Summary ---
Author Organization [facility] [employer] Address [address] [place] [address] Care Team Providers Care Real Estate Legal Secretary Name Role Phone Pcp, No Primary Care Provider [phone] Social History Tobacco Use Types Packs/Day Years [...] Adults 18 yrs or above (or HM Modifier)([facility]) 1974 Hepatitis C Virus Infection in Adolescents and Adults: Screening (or Modifier) ([facility]) 1974 [facility] Screening Reminder: Viri bales for all adults ([facility]) 1974 Tobacco Smoking Cessation: i n Adults excluding Women: Behavioral and Pharmacotherapy Interventions ([facility]) 1974 Colorectal Cancer Screening 45 -75 Yrs (or HM Modifier) 2001 Colorectal Cancer: FLEXIBLE SIGMOIDOSCOPY Screening every 5 yrs 2001 Colorectal Cancer: Fecal Imm unochemical Test (FIT) Annually [facility] 2001 Colorectal Cancer: High-sens itivity gFOBT Screening Annually [facility] 2001 Colorectal Cancer: Stool Col oguard Screening every 3 yrs 2001 Colorectal Cancer:CT Colonog sheba Screening every 5 yrs 2001 Breast Cancer: Screening Viri [place] age 50-74 yrs (or HM Modifier)([facility]) 2006 Pneumococcal Vaccination Scr eening: Patients 50+ yrs of age ([facility]) (1 of 1 - PCV) 2006 Zoster/Shingles Vaccine Seri es Screening: Adults aged 18+ yrs (or HM Modifiers)([facility]) (2 of 2) 04/18/2021 02/21/2021 Osteoporosis Screening to Pr event Fractures: Women aged 65 years+ ([facility]) 2021 DTaP/Tdap/Td Vaccines ([facility]) (2 - Td or Tdap) 03/07/2022 03/07/2012 Flu Vaccination: Ages 65+: Y early High Dose Recommended (or Modifier)([facility]) 04/20/2025 COVID-19 Vaccine Screening: Initial Series and Booster Status ([facility]) ( - 2024- season) 2025 12/21/2020, 11/30/2020 RSV Vaccines (1 - 1-dose 75+ series) 2031 Medical Devices Not on file Insurance MEDICARE Care Teams Real Estate Legal Secretary Relationship Specialty Start Date End Date Pcp, Deanna PCP - General Family Medicine 12/23/20
== END 2025-07-19 11:06 | disposition home or self-care (01) ==
LOC: HO.HPS 10:24
PROVIDERS: PCP Internal Medicine; Visit Provider Hospitalist
DX: J44.1 Chronic obstructive pulmonary disease with (acute) exacerbation (principal); F17.200 Nicotine dependence, unspecified, uncomplicated; J96.11 Chronic respiratory failure with hypoxia
CPT/HCPCS: 94618; 99215

== ENCOUNTER 2025-08-09 13:04 | Outpatient (AMB) | payer OTHER, MEDICAID, SELFPAY ==
--- NOTE | 2025-08-09 13:10 | A.OFFPC_ITS ---
Vital Signs 08/09/25 13:15 Height 5 ft 3 in Weight 165 lb 6 oz BMI 29.3 BP 126/60 Blood Pressure Location Lt brachial Position Sitting Pulse 94 Pulse Source Pulse Oximeter Temp 97.3 F Temp Source Temporal Artery Scan Pulse Oximetry (%) 98 Oxygen Delivery Method Nasal Cannula Intake Visit Reasons: annual exam - see comments Intake Note: Patient is here today for a physical. 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 Accompanied by: Daughter Allergies duloxetine Allergy (Intermediate, Uncoded 08/09/25 13:14) mood swings fenofibrate Allergy (Intermediate, Uncoded 08/09/25 13:14) leg pain tizanidine Allergy (Intermediate, Uncoded 08/09/25 13:14) ineffective topiramate Allergy (Unknown, Uncoded 08/09/25 13:14) sob Tobacco use date assessed: 08/09/25 Fall risk assessment: No Falls in past year Last assessed Fall Risk: 08/09/25 Dental Screening Dental Screen Date: 05/10/25 HPI HPI Comments History of Present Illness Details History of Present Illness - The patient is a 69 year old individua l presenting with extreme lethargy and for management of chronic conditions. - Lethargy: The patient reports experien cing extreme lethargy. - The patient's daughter notes that afte r an outing on Wednesday, the patient was still tired days later. - Perineal wart: An appointment is sched uled for the to address a perineal wart. - This appointment was rescheduled becau se the patient was taking antibiotics and prednisone prescribed by a christmas bell ringer. - Peripheral neuropathy: The patient rep orts burning sensations in the feet and hands, with one hand being worse. - The patient takes gabapentin 400 mg tw ice daily for this, which the patient believes is helping. - Chronic back pain: Tramadol was prescr ibed for back pain, but the patient reports not having taken it yet, saving it for emergency use. - Urinary incontinence and UTIs: The pat zahidant has had a couple of recent UTIs and reports urinary incontinence requiring the use of diapers. - The patient believes the UTIs cause se radha back pain. - Health Maintenance: The patient is ove rdue for a colonoscopy and has not yet completed a provided Cologuard test. - A mammogram was completed and needs to be repeated. - The patient has not yet received a flu shot. - Other: The patient uses supplemental o xygen and has received a smaller tank as requested. - Last blood work was done in June an d was noted to be fine. Social History - Functional Status: The patient reports still driving, though not frequently. - The patient reports extreme lethargy i mpacting activity levels. - Family and Social Support: The patient 's daughter was present for the appointment and is involved in the patient's care. Results - Labs: Blood work from June was revi ewed and noted to be fine. - Imaging: A recent mammogram requires a repeat study. [facility] Medical History (Updated 07/19/25 @ 12:42 by Leo Hinton MD) Perianal lesion Lower thoracic back pain Nicotine dependence, cigarettes, uncomplicated Peripheral neuropathy Insomnia Chronic respiratory failure History of abnormal cervical Pap smear History of COVID-19 (~09/2021) Surgical History History of D&C History of bladder surgery History of hysterectomy History of cholecystectomy History of appendectomy Family History Sister Lung cancer Mother DM2 (diabetes mellitus, type 2) Father Alzheimer disease Other Mental health disorder Social History (Updated 08/09/25 @ 13:19 by CAT Estrella) Housing: Other (mobile home) Alcohol intake: current Alcohol intake frequency: does not drink Patient Tobacco Use Status: Current everyday Tobacco user Tobacco use type: Cigarette Cigarette Packs Per Day: 1 Cigarettes Per Day: 20 Years Smoked: (onset 13yo, 1-2ppd x 53yrs, 60+PYH) e-Cigarette/Vaping Use: Never Used Second Hand Smoke Exposure: Yes service: No Current occupational status: retired Cognitive needs: No Hearing needs: No Vision needs: Yes (glasses) Questionnaire Thrive Questionnaire Date Thrive assessed: 05/10/25 I am a: Patient What is your living situation today?: I have a steady place to live Within the past 12 months, did the food you bought not last and you didn't have the money to get more?: Often true Within the past 12 months, did you worry whether your food would run out before you got money to buy more?: Often true Do you have trouble paying for medicines?: No Do you have trouble getting transportation to medical appointments?: No Do you have trouble paying your heating and electricity bill?: Yes Do you have trouble taking care of your child, family member or friend?: No Do you have trouble with day-to-day activities such as bathing, preparing meals, shopping, managing finances, etc.?: Yes Are you currently unemployed and looking for a job?: No Are you interested in more education?: No Please select the resources that you would like help with: Care for elder or disabled Currently or been in a relationship where the following occur: No concerns reported THRIVE Score: 3 AUDIT C Alcohol Use Questionnaire (AUDIT-C) 2. How many drinks containing alcohol do you have on a typical day when you are drinking?: 1 or 2 Total Score: 0 FROYLAN-7 AMB Questionnaire FROYLAN-7 Date FROYLAN - 7 assessed: 09/28/24 Source: Developed by Drs. Igor Fernandez, Nae Galdamez, Cole Eaton and colleagues, with an educational bronwyn from [employer]. Review of Systems Narrative Review of Systems - Constitutional: Reports extreme lethargy and sleeping a lot. - Genitourinary: Reports urinary incontinence and recent urinary tract infections. - Musculoskeletal: Reports back pain, which can be severe. - Neurological: Reports a burning sensation in the feet and hands. - Respiratory: Breathing is reported as okay. Physical exam (Primary Care) Vital Signs: Last Vital Signs Temp 97.3 F 08/09/25 13:15 Pulse 94 08/09/25 13:15 BP 126/60 08/09/25 13:15 Pulse Ox 98 08/09/25 13:15 Oxygen Delivery Method Nasal Cannula 08/09/25 13:15 BMI result Body Mass Index 29.3 Tobacco/Smoking Status: Tobacco use Status Tobacco use date assessed 08/09/25 08/09/25 13:21 Patient Tobacco Use Status Current everyday Tobacco 08/09/25 13:19 Tobacco use type Cigarette 08/09/25 13:19 e-Cigarette/Vaping Use Never Used 08/09/25 13:19 Thrive Assessment: Date of Thrive Assessment Date Thrive assessed 05/10/25 08/09/25 13:13 Currently or been in a relationship where the following occur: No concerns reported Narrative Physical Exam General: Cooperative and healthy appearing Nutritional Appearance: Well nourished Orientation/consciousness: Patient oriented x3 Limitations: No limitations Head: Normal to inspection General: Appearance normal, both eyes and all related structures Neck: Normal visual inspection Chest: Normal palpation of entire chest wall Respiratory: Normal respiratory effort Neurology: Patient oriented x3 Office Procedures Flu Questionnaire Does the patient have a severe egg allergy?: No Does the patient have severe life threatening allergies?: No Does the patient have a fever or illness today?: No Has the patient ever had Guillain-[place] Syndrome?: No Has the patient ever had any past reaction to a flu shot?: No Immunizations Fluarix [id number] (PF) 45 mcg (15 mcg x 3)/0.5 mL IM syringe Performing Provider: Jerome Busby MD [facility] Administered by: Yoselin Flood LPN on 08/09/25 14:13 Dose Route Admin Location Dispensed Lot Number Expiration Date ND Resident Programs Assistant 0.5 mL IM Left Deltoid 0.5 mL [id number] 03/19/26 [id number] [email or web address] VIS Given Date VIS Provided VIS Publication Date 08/09/25 Single Vaccine 24 Eligibility Eligibility Date Funding Source Not [facility] Eligible 08/09/25 Private Coding Level of Care Code Est Pt Level 4 (15360) Complex visit Add On G2211 Diagnoses Urinary incontinence R32 Assessment & Plan Assessment & Plan (1) Urinary incontinence: Code(s): R32 - Unspecified urinary incontinence Category: Medical Plan Plan - Urinary Issues: A referral will be made to a urologist for evaluation of ur inary incontinence and recurrent UTIs. - A prescription for incontinence products will be sent once the patient's family identifies a supplier through [employer]. - Neuropathy: Continue taking gabapentin 400 mg twice a day for nerve burning. - Back Pain: Continue to have tramadol available for emergency use, as the patient is not taking it regularly. - Health Maintenance: The patient will receive an influenza vaccination today. - The patient was instructed to complete the Cologuard test at home for colorectal cancer screening. - The patient will proceed with a repeat mammogram. - Perineal Wart: The patient will proceed with the scheduled appointment on the for management. - Administrative: Paperwork for a disabled parking permit will be provided to the patient. - Follow-up: The patient will follow up in three months. Discussion Notes I discussed the plan with the patient and the patient's daughter. I explained that I would provide a referral to a urologist for evaluation of the urinary incontinence and recurrent UTIs. We discussed the importance of completing the Cologuard test for colon cancer screening, clarifying that a positive result would necessitate a colonoscopy. I confirmed that the flu shot would be administered during today's visit. I also agreed to complete the necessary paperwork for a disabled parking permit and to write a prescription for incontinence supplies once the family identifies a provider. I reviewed that the most recent bloodwork from June was normal. We agreed on a follow-up appointment in three months. Patient Instructions - You will receive a referral to see a urology specialist for your urinary leakage and frequent infections. - Let our office know which company to send the prescription to for incontinence supplies. - Please complete the Cologuard stool test kit that you have at home. - You will get your flu shot in the office today. - Make sure to go for your repeat mammogram appointment. - Keep your appointment on the to have the wart checked. - Continue taking gabapentin 400 mg two times per day for nerve pain. - You may use the tramadol prescription for severe back pain only when you really need it. - You will be given paperwork for a disabled parking permit. - Please schedule a follow-up visit in our office in three months. Orders: Orders Influenza [id number] Immunization 08/09/25 Z23 - Encounter for immunization Referrals Urology Referral R32 - Unspecified urinary incontinence
[2025-08-09 13:15] VITALS: BP 126/60; PULSE 94; TEMP 36.3; O2SAT 98; BMI 29.3
== END 2025-08-09 14:09 | disposition home or self-care (01) ==
LOC: HO.HMCH 13:05
PROVIDERS: PCP Internal Medicine; Visit Provider Internal Medicine
DX: Z23 Encounter for immunization (principal)

== ENCOUNTER → 2025-08-09 13:04 | Outpatient (BNVA) | payer OTHER, MEDICAID, SELFPAY | PROVIDERS: PCP Internal Medicine; Visit Provider Internal Medicine | DX: Z23 Encounter for immunization (principal); R32 Unspecified urinary incontinence | CPT/HCPCS: 90471; 90656 ==

== ENCOUNTER → 2025-08-30 11:00 | Outpatient (BNV) | payer OTHER, MEDICAID, SELFPAY | PROVIDERS: PCP Internal Medicine; Visit Provider Internal Medicine | DX: R92.8 Other abnormal and inconclusive findings on diagnostic imaging of breast (principal) | CPT/HCPCS: 77061; 77065 ==

== ENCOUNTER 2025-08-30 11:14 | Outpatient (REF) | payer OTHER, MEDICAID, SELFPAY ==
--- NOTE | ~2025-08-30 | MM_ITS ---
EXAMINATION: MM DIAGNOSTIC DIGITAL BREAST TOMOSYNTHESIS, LEFT Left Limited ultrasound. CLINICAL INFORMATION: Call back from screening for questioned architectural distortion the superior left breast on MLO view. COMPARISON: Mammography: [facility] on PACS. TECHNIQUE: Digital breast tomosynthesis is performed in both the craniocaudal and mediolateral oblique views along with computer-aided detection (CAD). Synthesized 2D images are generated from the tomosynthesis. FINDINGS: There are scattered areas of fibroglandular density. Previously seen area of questioned distortion superior left breast MLO view does not persist on additional imaging projections. Only normal fibroglandular breast tissue is seen. There are no significant masses, abnormal calcifications, or other abnormalities. Targeted color Doppler ultrasound scanning in the upper outer quadrant demonstrates normal fibronodular breast tissue. There is no sonographic abnormal finding. MM/MM tomosynthesis added views L IMPRESSION: No mammographic evidence of malignancy. No abnormal finding in the upper outer left breast on ultrasound and mammography. ASSESSMENT: BI-RADS Category 1: Negative RECOMMENDATION: 1 year F/U Results were provided to the patient at time of visit by the technologist. This patient's information was entered into a reminder system with a target due date for their next mammogram. Electronically signed by: Lea Fritz DO 08/30/2025 12:06 PM [facility]
== END 2025-08-30 11:15 ==
LOC: HO.MAMMO 11:14
PROVIDERS: PCP Internal Medicine; Visit Provider Internal Medicine
DX: Z12.31 Encounter for screening mammogram for malignant neoplasm of breast (principal)
CPT/HCPCS: 76642; 77061; 77065